=== PATIENT | female | born 1965 | race Caucasian/White ===

== ENCOUNTER 2016-12-11 16:41 | Emergency (ER) | payer OTHER ==
[~2016-12-11 16:41] MED LIST: ACYC-101 PO; ALBU.5I NEB; ASPI81CH CHEW; AZIT500T2 PO; BACT800T5 PO; BENZ100 PO; FLUT1SPR5 EACH NARE; MAGICADU2 SWISH-SPIT; PRED-503 PO; SYMB160A INH
[2016-12-11] MEDS ORDERED: SODIUM CHLORIDE 0.9% FLUSH 10 ML FLUSH IVF PRN (17:45)
--- NOTE | 2016-12-11 17:48 | PD ---
HPI Chief Complaint: Abdominal Pain Time Seen by Provider: 17:38 Travel History International Travel<30 days: No Contact w/Intl Traveler<30days: No Traveled to known affect area: No History of Present Illness HPI Patient is a 51-year-old female presenting to the emergency department with several vague medical complaints. She states that her abdomen is distended and uncomfortable than she believes she has congestive heart failure or sepsis. She reports that she has been incontinent of urine for the last 2 days has had a 4 pound weight gain. She also reports a productive cough with green sputum. Patient is oxygen dependent secondary to COPD. Patient reports that her doctor just put her on a new inhaler, Anoro. She believes she is having side effects from this medication. She states that she has a cramp in her left side and feels jittery. PFSH Past Medical History Hx Anticoagulant Therapy: Yes (ASA) Arthritis: Yes (back and and neck) Autoimmune Disease: No Bipolar Disorder: Yes Anxiety: Yes Depression: Yes Heart Rhythm Problems: No Cancer: Yes (Gastric and Cervical) High Cholesterol: No Chemotherapy: Yes Chest Pain: No Congestive Heart Failure: Yes COPD: Yes (oxygen dependent) Diabetes: No Diminished Hearing: No Endocrine: No Gastrointestinal Disorders: Yes (GASTRIC CANCER, GERD, HX OF STOMACH ULCERS, ESOPHAGEAL STRICTURES/DILATION) GERD: Yes Genitourinary: Yes (GENITAL HERPES, HPV) Headaches: Yes Hepatitis: Yes (c) Hiatal Hernia: No Hypertension: Yes Immune Disorder: Yes (HX OF RHEUMATOID ARTHRITIS) Kidney Stones: Yes Neurologic: Yes (SEIZURES 2-3 YEARS, 18 YO HEAD INJURY, STROKE 2000, MIGRAINES) Psychiatric: Yes (SCHIZOAFFECTIVE DISORDER, POST TRAUMATIC STRESS DISORDER, OCD) Reproductive: Yes (CERVICAL CA, ABNORMAL VAGINAL BLEEDING) Immunizations Current: Yes Migraines: Yes Myocardial Infarction: Yes Radiation Therapy: Yes (2010) Renal Failure: No Seizures: Yes Sickle Cell Disease: No Sleep Apnea: No Thyroid Disease: No Ulcer: Yes PNEUMOCCOCAL Vaccine (Year): 2 Menopausal: Yes : 4 Para: 3 : 1 Ovarian Cysts: Yes Dilation and Curettage (D&C): Yes Past Surgical History Abdominal Surgery: Yes (06/16/10 PARTIAL BOWEL AND STOMACH REMOVAL FOR CA.-- CHEMO/RADIATION 2009) AICD: No Arteriovenous Shunt: No Body Medical Devices: CLAMPS FROM STOMACH SURGERY, TITANIUM PLATE IN HEAD Cardiac Surgery: No Section: Yes Ear Surgery: No Endocrine Surgery: No Eye Surgery: No Genitourinary Surgery: No Gynecologic Surgery: Yes (C SECTION X 2) Insulin Pump: No Joint Replacement: No Neurologic Surgery: Yes (CRAINIOTOMY AFTER HEAD INJURY AT 18 YO) Oral Surgery: No Pacemaker: No Thoracic Surgery: No Other Surgery: Yes (gastrectomy ) Social History Alcohol Use: No (hx) Tobacco Use: Yes (2 packs per week ) Substance Use: Yes (heroin, cocaine, meth, IV DRUG USE) Allergies-Medications (Allergen,Severity, Reaction): Coded Allergies: Codeine (Verified Adverse Reaction, Severe, NAUSEA, ITCHING, 08/08/16) Lortab (Verified Adverse Reaction, Intermediate, NAUSEA/VOMITING, 08/08/16 ) Percocet (Verified Adverse Reaction, Intermediate, NAUSEA/VOMITING, ) *MDRO Multi-Drug Resistant Organism (Verified Adverse Reaction, Unknown, 08/08/16) Pt. reports hx of MRSA. MRSA PCR Screen negative 06/20/15. Reported Meds & Prescriptions Reported Meds & Active Scripts Active Magic Mouthwash Adult Liq (Multi-Ingredient Mouthwash/Gargle) 120 Ml Susp 5 Ml SWISH-SPIT Q3HR Each 5 mL contains: Nystatin 200,000 units, Diphenhydramine 4.25 mg, Viscous Lidocaine 10 mg, Robles syrup 0.8 mL Tessalon Perles (Benzonatate) 100 Mg Cap 100 Mg PO TID PRN Azithromycin 500 Mg Tab 500 Mg PO DAILY Reported Calcium (Oyster Shell) 500 Mg Tab B Complex (B-Complex Vitamins) 1 Cap 1 Cap PO DAILY Potassium 75 Mg Tab Vitamin D3 (Cholecalciferol) 1,000 Unit Chew 1,000 Units CHEW DAILY Vitamin C (Ascorbic Acid) 100 Mg Chew 100 Mg CHEW Ipratropium [place] 1 Pow Pow Proair Respiclick Inh (Albuterol Sulfate) 90 Mcg/Act Aerp 1 Puff INH Q4H PRN Anoro Ellipta Inh (Umeclidinium/Vilanterol) 62.5-25 Mcg/Act Aero 1 Puff INH DAILY Prednisone 10 Mg Tab 10 Mg PO DAILY Bactrim DS (Sulfamethoxazole-Trimethoprim) 800-160 Mg Tab 1 Tab PO BID Zovirax (Acyclovir) 800 Mg Tab 800 Mg PO BID Flonase Nasal [place] (Fluticasone Nasal [place]) 50 Mcg/Act [place] 50 Mcg EACH NARE BID Symbicort Inh (Budesonide/Formoterol Fumarate) 160-4.5 Mcg/Act Aero 2 Puff INH Q12HR Aspirin 81 Mg Chew 81 Mg CHEW DAILY Albuterol Neb (Albuterol Sulfate) 2.5 Mg/0.5 Ml Neb 2.5 Mg NEB Q4HR NEB PRN Note: The Albuterol Sulfate Inhalation Solution is concentrated and must be diluted. Read complete instructions carefully before using. Review of Systems Except as stated in HPI: all other systems reviewed are Neg Respiratory: Positive: Cough, Shortness of Breath Gastrointestinal: Positive: Abdominal Pain (distention), No: Nausea, Vomiting Genitourinary: Positive: Dysuria, Incontinence Neurologic: No: Weakness, Dizziness, Syncope, Focal Abnormalities Physical Exam Narrative GENERAL: Developed, well-nourished, alert female. Resting comfortably in no acute distress. SKIN: Focused skin assessment warm/dry. HEAD: Atraumatic. Normocephalic. EYES: Pupils equal and round. No scleral icterus. No injection or drainage. ENT: No nasal bleeding or discharge. Mucous membranes pink and moist. NECK: Trachea midline. No JVD. CARDIOVASCULAR: Regular rate and rhythm. No murmur appreciated. RESPIRATORY: No accessory muscle use. Scattered expiratory wheezing noted. These work of breathing, no nasal flaring, no retractions. GASTROINTESTINAL: Abdomen soft, non-tender, mildly distended. Hepatic and splenic margins not palpable. Positive bowel sounds, no rebound, or guarding MUSCULOSKELETAL: No obvious deformities. No clubbing. No cyanosis. No edema. NEUROLOGICAL: Awake and alert. No obvious cranial nerve deficits. Motor grossly within normal limits. Normal speech. PSYCHIATRIC: Appropriate mood and affect; insight and judgment normal. Data Data Last Documented VS Vital Signs Date Time Temp Pulse Resp B/P Pulse Ox O2 Delivery O2 Flow Rate FiO2 12/11/16 18:35 99.1 89 20 142/86 98 Nasal Cannula 2 Orders Complete Blood Count With Diff (12/11/16 17:35) Comprehensive Metabolic Panel (12/11/16 17:35) B-Type Natriuretic Peptide (12/11/16 17:35) Prothrombin Time / Inr (Pt) (12/11/16 17:35) Magnesium (Mg) (12/11/16 17:35) Troponin I (12/11/16 17:35) Urinalysis - C+S If Indicated (12/11/16 17:35) Iv Access Insert/Monitor (12/11/16 17:35) Electrocardiogram (12/11/16 17:35) Ecg Monitoring (12/11/16 17:35) Oximetry (12/11/16 17:35) Oxygen Administration (12/11/16 17:35) Chest, Single Ap (12/11/16 17:35) Sodium Chloride 0.9% Flush (Ns Flush) (12/11/16 17:45) Labs Laboratory Tests Test 12/11/16 12/11/16 17:57 18:00 Urine Color YELLOW Urine Turbidity CLEAR Urine pH 6.0 Urine Specific [place] 1.022 Urine Protein NEG mg/dL Urine Glucose (UA) NEG mg/dL Urine Ketones NEG mg/dL Urine Occult Blood NEG Urine Nitrite NEG Urine Bilirubin NEG Urine Urobilinogen LESS THAN 2.0 MG/DL Urine Leukocyte Esterase NEG Urine WBC LESS THAN 1 /hpf Urine Squamous Epithelial <1 /hpf Cells Microscopic Urinalysis Comment CULT NOT INDICATED White Blood Count 8.4 TH/MM3 Red Blood Count 4.56 MIL/MM3 Hemoglobin 14.3 GM/DL Hematocrit 42.8 % Mean Corpuscular Volume 93.9 FL Mean Corpuscular Hemoglobin 31.3 PG Mean Corpuscular Hemoglobin 33.4 % Concent Red Cell Distribution Width 13.4 % Platelet Count 234 TH/MM3 Mean Platelet Volume 10.5 FL Neutrophils (%) (Auto) 48.7 % Lymphocytes (%) (Auto) 37.2 % Monocytes (%) (Auto) 11.5 % Eosinophils (%) (Auto) 0.9 % Basophils (%) (Auto) 1.7 % Neutrophils # (Auto) 4.1 TH/MM3 Lymphocytes # (Auto) 3.1 TH/MM3 Monocytes # (Auto) 1.0 TH/MM3 Eosinophils # (Auto) 0.1 TH/MM3 Basophils # (Auto) 0.1 TH/MM3 CBC Comment AUTO DIFF Differential Comment AUTO DIFF CONFIRMED Platelet Estimate NORMAL Platelet Morphology Comment NORMAL Red Cell Morphology Comment NORMAL Prothrombin Time 9.5 SEC Prothromb Time International 0.9 RATIO Ratio Sodium Level 138 MEQ/L Potassium Level 5.1 MEQ/L Chloride Level 103 MEQ/L Carbon Dioxide Level 28.0 MEQ/L Anion Gap 7 MEQ/L Blood Urea Nitrogen 30 MG/DL Creatinine 0.91 MG/DL Estimat Glomerular Filtration 65 ML/MIN Rate Random Glucose 97 MG/DL Calcium Level 8.7 MG/DL Magnesium Level 2.5 MG/DL Total Bilirubin 0.4 MG/DL Aspartate Amino Transf 22 U/L (AST/SGOT) Alanine Aminotransferase 25 U/L (ALT/SGPT) Alkaline Phosphatase 83 U/L Troponin I LESS THAN 0.02 NG/ML B-Type Natriuretic Peptide 34 PG/ML Total Protein 7.0 GM/DL Albumin 3.4 GM/DL MDM Medical Decision Making Medical Screen Exam Complete: Yes Emergency Medical Condition: Yes Interpretation(s) Laboratory Tests Test 12/11/16 12/11/16 17:57 18:00 Urine Color YELLOW Urine Turbidity CLEAR Urine pH 6.0 Urine Specific [place] 1.022 Urine Protein NEG mg/dL Urine Glucose (UA) NEG mg/dL Urine Ketones NEG mg/dL Urine Occult Blood NEG Urine Nitrite NEG Urine Bilirubin NEG Urine Urobilinogen LESS THAN 2.0 MG/DL Urine Leukocyte Esterase NEG Urine WBC LESS THAN 1 /hpf Urine Squamous Epithelial <1 /hpf Cells Microscopic Urinalysis Comment CULT NOT INDICATED White Blood Count 8.4 TH/MM3 Red Blood Count 4.56 MIL/MM3 Hemoglobin 14.3 GM/DL Hematocrit 42.8 % Mean Corpuscular Volume 93.9 FL Mean Corpuscular Hemoglobin 31.3 PG Mean Corpuscular Hemoglobin 33.4 % Concent Red Cell Distribution Width 13.4 % Platelet Count 234 TH/MM3 Mean Platelet Volume 10.5 FL Neutrophils (%) (Auto) 48.7 % Lymphocytes (%) (Auto) 37.2 % Monocytes (%) (Auto) 11.5 % Eosinophils (%) (Auto) 0.9 % Basophils (%) (Auto) 1.7 % Neutrophils # (Auto) 4.1 TH/MM3 Lymphocytes # (Auto) 3.1 TH/MM3 Monocytes # (Auto) 1.0 TH/MM3 Eosinophils # (Auto) 0.1 TH/MM3 Basophils # (Auto) 0.1 TH/MM3 CBC Comment AUTO DIFF Differential Comment AUTO DIFF CONFIRMED Platelet Estimate NORMAL Platelet Morphology Comment NORMAL Red Cell Morphology Comment NORMAL Prothrombin Time 9.5 SEC Prothromb Time International 0.9 RATIO Ratio Sodium Level 138 MEQ/L Potassium Level 5.1 MEQ/L Chloride Level 103 MEQ/L Carbon Dioxide Level 28.0 MEQ/L Anion Gap 7 MEQ/L Blood Urea Nitrogen 30 MG/DL Creatinine 0.91 MG/DL Estimat Glomerular Filtration 65 ML/MIN Rate Random Glucose 97 MG/DL Calcium Level 8.7 MG/DL Magnesium Level 2.5 MG/DL Total Bilirubin 0.4 MG/DL Aspartate Amino Transf 22 U/L (AST/SGOT) Alanine Aminotransferase 25 U/L (ALT/SGPT) Alkaline Phosphatase 83 U/L Troponin I LESS THAN 0.02 NG/ML B-Type Natriuretic Peptide 34 PG/ML Total Protein 7.0 GM/DL Albumin 3.4 GM/DL Last Impressions Chest X-Ray 12/11/16 9845 Signed Impressions: Service Date/Time: Sunday, December 11, 2016 17:54 - CONCLUSION: No acute disease. Richy Brady MD Vital Signs Date Time Temp Pulse Resp B/P Pulse Ox O2 Delivery O2 Flow Rate FiO2 12/11/16 17:32 20 Differential Diagnosis CHF versus COPD exacerbation versus constipation versus ascites versus UTI versus other Narrative Course Patient is a 51-year-old female presenting to emergency for evaluation of various medical complaints including incontinence, productive cough, abdominal distention. Patient is concerned she has congestive heart failure due to her abdomen being swollen. Her vital signs are stable, she is oxygen dependent. Chest x-ray shows no acute abnormality EKG shows sinus bradycardia BNP 34 Troponin less than 0.02 Chemistry is unremarkable CBC is unremarkable Coags are unremarkable Urinalysis is normal Patient was reassured at this time there does not appear to be any sign of congestive heart failure. I reassured her that her chest x-ray, labs do not indicate that she has congestive heart failure. She is advised to follow-up with her weigher alloy to discuss possible side effects of the ANORO inhaler. She was encouraged to follow-up with her community health coordinator and primary care provider. He was encouraged to return to emergency department for any new or worsening symptoms. Patient verbalized understanding of these instructions. She appeared to be more at ease and reassured. Physician Communication Physician Communication Dr. Dougherty Diagnosis Primary Impression: COPD (chronic obstructive pulmonary disease) Qualified Code: J44.9 - Chronic obstructive pulmonary disease, unspecified COPD type Referrals: Brando Lawson MD 3 days Secretarial Teacher Primary Care Physician Patient Instructions: COPD (Chronic Obstructive Pulmonary Disease) (ED), General Instructions Additional Instructions: Follow-up with your weigher alloy, community health coordinator, primary doctor Continue home medications as previously prescribed Return to emergency department for any new or worsening symptoms Med/Other Pt SpecificInfo: No Change to Meds Disposition: 01 DISCHARGE HOME Condition: Stable Gini Hurtado Dec 11, 2016 17:48
[2016-12-11 18:11] VITALS: O2SAT 98
--- NOTE | 2016-12-11 18:29 | RADRPT ---
EXAM DATE/TIME: 12/11/2016 17:54 [facility] COMPARISON: CHEST SINGLE AP, August 08, 2016, 15:29. EXTERNAL COMPARISON : [facility] INDICATIONS : Shortness of breath. MEDICAL HISTORY : Congestive heart failure. Emphysema. Chronic obstructive pulmonary SURGICAL HISTORY : None. ENCOUNTER: Initial ACUITY: 1 week PAIN SCORE: 0/10 LOCATION: Bilateral chest FINDINGS: A single view of the chest demonstrates the lungs to be symmetrically aerated without evidence of mas s, infiltrate or effusion. The cardiomediastinal contours are unremarkable. Osseous structures are intact. CONCLUSION: No acute disease. Richy Brady MD on December 11, 2016 at 18:27 Board Certified Radiologist. This report was verified electronically.
[2016-12-11 18:35] VITALS: BP 142/86; PULSE 89; RESP 20; TEMP 99.1; O2SAT 98
[2016-12-11 18:39] LABS: BLOOD, URINE NEG (NEG); GLUCOSE,URINE NEG (NEG); KETONE, URINE NEG (NEG); NITRITE,URINE NEG (NEG); SQUAMOUS EPITHELIAL CELL URINE <1 /hpf (0-5); URINE COLOR YELLOW (YELLW/STRAW)
[2016-12-11 18:41] LABS: AUTOMATED NEUTROPHIL # 4.1 TH/MM3 (1.8-7.7); BASOPHIL # 0.1 TH/MM3 (0-0.2); BASOPHIL % 1.7 % (0.0-2.0); EOSINOPHIL # 0.1 TH/MM3 (0-0.4); EOSINOPHIL % 0.9 % (0.0-4.0); HEMATOCRIT 42.8 % (35.0-46.0); LYMPH % 37.2 % (9.0-44.0); LYMPHOCYTE # 3.1 TH/MM3 (1.0-4.8); MEAN CELL VOLUME 93.9 FL (80.0-100.0); MEAN CORPUSCULAR HEMOGLOBIN 31.3 PG (27.0-34.0); MEAN CORPUSCULAR HGB CONC 33.4 % (32.0-36.0); MONO % 11.5 % (0.0-8.0); NEUT % 48.7 % (16.0-70.0); PLATELET COUNT 234 TH/MM3 (150-450); RED BLOOD COUNT 4.56 MIL/MM3 (4.00-5.30); RED CELL DISTRIBUTION WIDTH 13.4 % (11.6-17.2); WHITE BLOOD COUNT 8.4 TH/MM3 (4.0-11.0)
[2016-12-11 18:45] LABS: HEMO FLAGS AUTO DIFF; INTERNATIONAL NORMALIZED RATIO 0.9 RATIO; PROTHROMBIN TIME - PATIENT 9.5 SEC (9.8-11.6)
[2016-12-11] MEDS ORDERED: IPRA1POW8 (18:50)
[2016-12-11] MEDS ORDERED: PRED10 PO (18:50)
[2016-12-11] MEDS ORDERED: UMEC1AER INH (18:50)
[2016-12-11] MEDS ORDERED: VITA100C6 CHEW (18:50)
[2016-12-11] MEDS ORDERED: CHOL100025 CHEW (18:50)
[2016-12-11] MEDS ORDERED: CALC500T35 (18:50)
[2016-12-11] MEDS ORDERED: POTA75TA (18:50)
[2016-12-11] MEDS ORDERED: VITACAP7 PO (18:50)
[2016-12-11] MEDS ORDERED: ALBU1AER5 INH (18:50)
[2016-12-11 18:51] LABS: COMMENT (UR) CULT NOT INDICATED; CULTURE IF INDICATED CULT NOT INDICATED
[2016-12-11 19:08] LABS: ANION GAP 7 MEQ/L (5-15); AST (GOT) 22 U/L (15-37); BLOOD UREA NITROGEN 30 MG/DL (7-18); CHLORIDE 103 MEQ/L (98-107); GLOMERULAR FILTRATION RATE 65 ML/MIN (>89); MAGNESIUM 2.5 MG/DL (1.5-2.5); SODIUM (NA) 138 MEQ/L (136-145)
[2016-12-11 19:09] LABS: POTASSIUM 5.1 MEQ/L (3.5-5.1)
[2016-12-11 19:12] LABS: ALKALINE PHOSPHATASE 83 U/L (45-117); ALT (GPT) 25 U/L (10-53); TOTAL BILIRUBIN ADULT 0.4 MG/DL (0.2-1.0)
[2016-12-11 19:23] LABS: PLATELET ESTIMATE SMEAR NORMAL (NORMAL); PLATELET MORPHOLOGY NORMAL (NORMAL); SCAN/DIFF AUTO DIFF CONFIRMED
--- NOTE | 2016-12-12 15:53 | EKG ---
Date Performed: 12/11/2016 Time Performed: 18:06:43 PTAGE: 51 years EKG: Sinus rhythm NORMAL ECG PREVIOUS TRACING : 10/02/2015 14.03 Since previous tracing, no significant change noted DOCTOR: Maksim Caldwell Interpretating Date/Time 12/12/2016 15:53:17
== END 2016-12-11 20:27 | disposition home or self-care (01) ==
LOC: NEPD 16:41
DX: J44.9 Chronic obstructive pulmonary disease, unspecified (principal); R05 Cough; Z99.81 Dependence on supplemental oxygen; I50.9 Heart failure, unspecified; R32 Unspecified urinary incontinence; F31.9 Bipolar disorder, unspecified; K21.9 Gastro-esophageal reflux disease without esophagitis; I10 Essential (primary) hypertension; I25.2 Old myocardial infarction; Z79.899 Other long term (current) drug therapy
CPT/HCPCS: 71010; 80053; 81001; 83735; 83880; 84484; 85025; 85610; 93005

== ENCOUNTER 2017-01-13 19:02 | Emergency (ER) | payer OTHER ==
[~2017-01-13] VITALS: Ht 157.5 cm; Wt 60.0 kg
[~2017-01-13 19:02] MED LIST changes: +ALBU1AER5 INH; +CALC500T35; +CHOL100025 CHEW; +IPRA1POW8; +POTA75TA; -PRED-503 PO; +PRED10 PO; +UMEC1AER INH; +VITA100C6 CHEW; +VITACAP7 PO
[2017-01-13 19:05] VITALS: BP 113/88; PULSE 98; RESP 15; TEMP 99.6; O2SAT 94
--- NOTE | 2017-01-13 21:50 | RADRPT ---
EXAM DATE/TIME: 01/13/2017 21:08 [facility] COMPARISON: No previous studies available for comparison. INDICATIONS : Left lower back pain from fall. RADIATION DOSE: 35.86 CTDIvol (mGy) MEDICAL HISTORY : Carcinoma, gastric. Carcinoma, cervical. SURGICAL HISTORY : section. Partial bowel removed. Stomach removed. ENCOUNTER: Initial ACUITY: 2 months PAIN SCALE: 10/10 LOCATION: Left Lumbar spine. TECHNIQUE: Volumetric scanning of the lumbar spine was performed. Multiplanar reconstructions in the sagittal, coronal and oblique axial planes were performed. Using automated exposure control and adjustment of the mA and/or kV according to patient size, radiation dose was kept as low as reasonably achievable t o obtain optimal diagnostic quality images. FINDINGS: Sagittal images demostrate normal vertebral body alignment and curvature. No fractures are identified . Axial images performed from T12-L1 through L5-S1. There is mild scoliotic deformity convex to the r ight. There is multilevel disc space narrowing and marginal osteophyte formation maximal at L3-L4. T12-L1: No significant abnormalities identified. L1-L2: There is mild diffuse annular bulge of the disc. The neural foramina are clear bilaterally. There is no significant spinal canal stenosis. L2-L3: There is mild diffuse annular bulge of the disc. The neural foramina are clear bilaterally. There is no significant spinal canal stenosis. L3-L4: There is mild annular bulge of the disc. There is mild facet arthritis and ligamentum flavum hypertro phy bilaterally. The neural foramina are clear bilaterally. L4-L5: There is broad-based annular bulge of disc. There is mild facet arthritis and ligamentum flavum hyper [place] bilaterally. The neural foramina are clear bilaterally. L5-S1: There is mild diffuse annular bulge of the disc. The neural foramina are clear bilaterally. There is no significant spinal canal stenosis. CONCLUSION: 1. Mild degenerative changes as described above. There is no evidence of acute fracture. Mason Moss MD on January 13, 2017 at 21:46 Board Certified Radiologist. This report was verified electronically.
--- NOTE | 2017-01-13 22:22 | PD ---
HPI . Low back pain Chief Complaint: Pain: Acute or Chronic Time Seen by Provider: 20:36 Travel History International Travel<30 days: No Contact w/Intl Traveler<30days: No Traveled to known affect area: No History of Present Illness HPI Patient presents with low back pain. She has had it for a couple weeks. She states that it is getting progressively worse. She states that it feels like a broken bone in her back. She rates her pain as 10/10. She states that she has been seen by her primary care provider for this and was instructed to come to the emergency department for CT. She has a history of both gastric cancer and cervical cancer. There is concern that this back pain represents metastatic disease. Patient reports palpable masses in her low back which are very tender. Patient states that she has been given a prescription for pain medication per her primary care provider a few because she does not like the way that it makes her feel. She states that she has been treating her symptoms with Tylenol and a heating pad. PFSH Past Medical History Hx Anticoagulant Therapy: Yes (ASA) Arthritis: Yes (back and and neck) Asthma: Yes ( CHILD) Autoimmune Disease: No Bipolar Disorder: Yes Anxiety: Yes Depression: Yes Heart Rhythm Problems: No Cancer: Yes (Gastric and Cervical) Cardiovascular Problems: Yes (CHF) High Cholesterol: No Chemotherapy: Yes Chest Pain: No Congestive Heart Failure: Yes COPD: Yes (oxygen dependent) Diabetes: No Diminished Hearing: No Endocrine: No Gastrointestinal Disorders: Yes (GASTRIC CANCER, GERD, HX OF STOMACH ULCERS, ESOPHAGEAL STRICTURES/DILATION) GERD: Yes Genitourinary: Yes (GENITAL HERPES, HPV) Headaches: Yes Hepatitis: Yes (c) Hiatal Hernia: No Hypertension: Yes Immune Disorder: Yes (HX OF RHEUMATOID ARTHRITIS) Kidney Stones: Yes Medical other: Yes (HX OF ANEMIA, GASTRIC DUMPING SYNDROME) Musculoskeletal: Yes (CHRONIC NECK PAIN, BACK, SHOULDER, RHEUMATOID ARTHRITIS) Neurologic: Yes (SEIZURES 2-3 YEARS, 18 YO HEAD INJURY, STROKE 2000, MIGRAINES) Psychiatric: Yes (SCHIZOAFFECTIVE DISORDER, POST TRAUMATIC STRESS DISORDER, OCD) Reproductive: Yes (CERVICAL CA, ABNORMAL VAGINAL BLEEDING) Respiratory: Yes (COPD) Immunizations Current: Yes Migraines: Yes Myocardial Infarction: Yes Radiation Therapy: Yes (2010) Renal Failure: No Seizures: Yes Sickle Cell Disease: No Sleep Apnea: No Thyroid Disease: No Ulcer: Yes PNEUMOCCOCAL Vaccine (Year): 2 ?: Not Menopausal: Yes : 4 Para: 3 : 1 Ovarian Cysts: Yes Dilation and Curettage (D&C): Yes Past Surgical History Abdominal Surgery: Yes (06/16/10 PARTIAL BOWEL AND STOMACH REMOVAL FOR CA.-- CHEMO/RADIATION 2009) AICD: No Arteriovenous Shunt: No Body Medical Devices: CLAMPS FROM STOMACH SURGERY, TITANIUM PLATE IN HEAD Cardiac Surgery: No Section: Yes (x2) Ear Surgery: No Endocrine Surgery: No Eye Surgery: No Genitourinary Surgery: No Gynecologic Surgery: Yes (C SECTION X 2) Insulin Pump: No Joint Replacement: No Neurologic Surgery: Yes (CRAINIOTOMY AFTER HEAD INJURY AT 18 YO) Oral Surgery: No Pacemaker: No Thoracic Surgery: No Other Surgery: Yes (gastrectomy ) Social History Alcohol Use: No (hx) Tobacco Use: Yes Substance Use: No (heroin, cocaine, meth, IV DRUG USE-pt denies) Allergies-Medications (Allergen,Severity, Reaction): Coded Allergies: Codeine (Verified Adverse Reaction, Severe, NAUSEA, ITCHING, 01/13/17) Lortab (Verified Adverse Reaction, Intermediate, NAUSEA/VOMITING, 01/13/17) Percocet (Verified Adverse Reaction, Intermediate, NAUSEA/VOMITING, ) *MDRO Multi-Drug Resistant Organism (Verified Adverse Reaction, Unknown, ) Pt. reports hx of MRSA. MRSA PCR Screen negative 06/20/15. Reported Meds & Prescriptions Reported Meds & Active Scripts Active Reported Calcium (Oyster Shell) 500 Mg Tab B Complex (B-Complex Vitamins) 1 Cap 1 Cap PO DAILY Potassium 75 Mg Tab Vitamin D3 (Cholecalciferol) 1,000 Unit Chew 1,000 Units CHEW DAILY Vitamin C (Ascorbic Acid) 100 Mg Chew 100 Mg CHEW Ipratropium [place] 1 Pow Pow Proair Respiclick Inh (Albuterol Sulfate) 90 Mcg/Act Aerp 1 Puff INH Q4H PRN Anoro Ellipta Inh (Umeclidinium/Vilanterol) 62.5-25 Mcg/Act Aero 1 Puff INH DAILY Zovirax (Acyclovir) 800 Mg Tab 800 Mg PO BID Flonase Nasal [place] (Fluticasone Nasal [place]) 50 Mcg/Act [place] 50 Mcg EACH NARE BID Aspirin 81 Mg Chew 81 Mg CHEW DAILY Albuterol Neb (Albuterol Sulfate) 2.5 Mg/0.5 Ml Neb 2.5 Mg NEB Q4HR NEB PRN Note: The Albuterol Sulfate Inhalation Solution is concentrated and must be diluted. Read complete instructions carefully before using. Review of Systems Except as stated in HPI: all other systems reviewed are Neg General / Constitutional: Positive: Weight Gain, No: Fever, Chills Respiratory: Positive: Shortness of Breath (chronic shortness of breath related to COPD.) Musculoskeletal: Positive: Pain (low back pain) Skin: Positive Lumps Physical Exam Narrative GENERAL: Patient is awake and alert and does not appear to be in any acute distress. She is on oxygen. SKIN: Warm and dry. She has several subcutaneous, freely mobile masses in her low back. They are of varying sizes. She actually has one on her right low back which is quite large. It probably 10 cm in diameter. HEAD: Atraumatic. Normocephalic. EYES: Pupils equal and round. ENT: No nasal bleeding or discharge. Mucous membranes pink and moist. NECK: Trachea midline. CARDIOVASCULAR: Regular rate and rhythm. RESPIRATORY: On O2. Speaking in complete sentences without any apparent respiratory distress. GASTROINTESTINAL: Abdomen soft, non-tender, nondistended. MUSCULOSKELETAL: No obvious deformities. No edema. NEUROLOGICAL: Awake and alert. No obvious cranial nerve deficits. Motor grossly within normal limits. Normal speech. PSYCHIATRIC: Appropriate mood and affect; insight and judgment normal. Data Data Last Documented VS Vital Signs Date Time Temp Pulse Resp B/P Pulse Ox O2 Delivery O2 Flow Rate FiO2 01/13/17 19:05 99.6 98 15 113/88 94 Room Air [address] Lumb Spine W/O Contrast (01/13/17 20:36) MDM Medical Decision Making Medical Screen Exam Complete: Yes Emergency Medical Condition: Yes Differential Diagnosis Differential diagnosis includes but is not limited to muscular low back pain, DDD, spinal stenosis, epidural abscess, sciatica, kidney infection or stone. Narrative Course Patient presents complaining of low back pain. She does have palpable subcutaneous masses scattered throughout her low back. They are freely mobile but tender. Last Impressions Lumbar Spine CT 01/13/172035 Signed Impressions: Service Date/Time: Friday, January 13, 2017 21:08 - CONCLUSION: 1. Mild degenerative changes as described above. There is no evidence of acute fracture. Mason Moss MD The CT shows scoliosis which is probably responsible for the apparent swelling of the right low back. Diagnosis Primary Impression: Low back pain Qualified Code: M54.5 - Acute bilateral low back pain without sciatica Additional Instructions: Continue to see your doctor for this. Disposition: 01 DISCHARGE HOME Condition: Stable Pratibha Corona MD January 13, 2017 22:22
== END 2017-01-13 23:40 | disposition home or self-care (01) ==
LOC: NEPD 19:02
DX: M54.5 Low back pain (principal); I10 Essential (primary) hypertension; Z79.01 Long term (current) use of anticoagulants; Z72.0 Tobacco use
CPT/HCPCS: 72131

== ENCOUNTER 2017-03-14 17:50 | Emergency (ER) | payer OTHER ==
[~2017-03-14] VITALS: Ht 157.5 cm; Wt 60.0 kg
[~2017-03-14 17:50] MED LIST changes: -AZIT500T2 PO; -BACT800T5 PO; -BENZ100 PO; -MAGICADU2 SWISH-SPIT; -PRED10 PO; -SYMB160A INH
[2017-03-14 17:53] VITALS: BP 147/81; PULSE 102; RESP 24; TEMP 97.9; O2SAT 95
[2017-03-14 18:27] VITALS: RESP 20; O2SAT 99
[2017-03-14] MEDS ORDERED: methylPREDNISolone SOD SUCC 125 MG/2 ML VIAL IVP ONE (18:30)
[2017-03-14] MEDS ORDERED: SODIUM CHLORIDE 0.9% FLUSH 10 ML FLUSH IVF PRN (18:30)
--- NOTE | 2017-03-14 18:30 | PD ---
HPI Chief Complaint: Respiratory Symptoms Time Seen by Provider: 18:26 Travel History International Travel<30 days: No Contact w/Intl Traveler<30days: No Traveled to known affect area: No History of Present Illness HPI 51-year-old female presents to the emergency department for evaluation of worsening cough, congestion. She states she was running fevers for 3 days, but the fevers broke yesterday. She denies any current fevers. Patient has history of COPD. She states she is on oxygen at home, 2.5 L. Patient states that approximately one year ago, she was very sick with pneumonia, sepsis and states that she did have a PE at that time. I do not have records of this admission 1 year ago. The patient states she was recently on Levaquin for bronchitis. She finished this just recently. She is currently taking benzonatate capsules for cough. The patient states that she had congestive heart failure when she was hospital was one year ago, but denies any current history of CHF that she is not on any diuretics. Patient is concerned that she may have pneumonia, sepsis, or CHF. Patient states she is having right thoracic back pain, worse with deep breathing and movement. She denies any abdominal pain. No nausea, vomiting, diarrhea. PFSH Past Medical History Hx Anticoagulant Therapy: Yes (ASA) Arthritis: Yes (back and and neck) Asthma: Yes ( CHILD) Autoimmune Disease: No Bipolar Disorder: Yes Anxiety: Yes Depression: Yes Heart Rhythm Problems: No Cancer: Yes (Gastric and Cervical) Cardiovascular Problems: Yes ([place] X 2 CHF) High Cholesterol: No Chemotherapy: Yes Chest Pain: No Congestive Heart Failure: Yes COPD: Yes (oxygen dependent) Cerebrovascular Accident: Yes (TIA ) Diabetes: No Diminished Hearing: No Endocrine: No Gastrointestinal Disorders: Yes (GASTRIC CANCER, GERD, HX OF STOMACH ULCERS, ESOPHAGEAL STRICTURES/DILATION) GERD: Yes Genitourinary: Yes (GENITAL HERPES, HPV) Headaches: Yes Hepatitis: Yes (c) Hiatal Hernia: No Hypertension: Yes Immune Disorder: Yes (HX OF RHEUMATOID ARTHRITIS) Kidney Stones: Yes Medical other: Yes (HX OF ANEMIA, GASTRIC DUMPING SYNDROME) Musculoskeletal: Yes (CHRONIC NECK PAIN, BACK, SHOULDER, RHEUMATOID ARTHRITIS) Neurologic: Yes (SEIZURES 2-3 YEARS, 18 YO HEAD INJURY, STROKE 2000, MIGRAINES) Psychiatric: Yes (SCHIZOAFFECTIVE DISORDER, POST TRAUMATIC STRESS DISORDER, OCD) Reproductive: Yes (CERVICAL CA, ABNORMAL VAGINAL BLEEDING) Respiratory: Yes (COPD) Immunizations Current: Yes Migraines: Yes Myocardial Infarction: Yes Radiation Therapy: Yes (2010) Renal Failure: No Seizures: Yes Sickle Cell Disease: No Sleep Apnea: No Thyroid Disease: No Ulcer: Yes Tetanus Vaccination: Never Vaccinated PNEUMOCCOCAL Vaccine (Year): 2 ?: Not Menopausal: Yes : 4 Para: 3 : 1 Ovarian Cysts: Yes Dilation and Curettage (D&C): Yes Past Surgical History Abdominal Surgery: Yes (06/16/10 PARTIAL BOWEL AND STOMACH REMOVAL FOR CA.-- CHEMO/RADIATION 2009) AICD: No Arteriovenous Shunt: No Body Medical Devices: CLAMPS FROM STOMACH SURGERY, TITANIUM PLATE IN HEAD Cardiac Surgery: No Section: Yes (x2) Ear Surgery: No Endocrine Surgery: No Eye Surgery: No Genitourinary Surgery: No Gynecologic Surgery: Yes (C SECTION X 2) Insulin Pump: No Joint Replacement: No Neurologic Surgery: Yes (CRAINIOTOMY AFTER HEAD INJURY AT 18 YO) Oral Surgery: No Pacemaker: No Thoracic Surgery: No Other Surgery: Yes (gastrectomy ) Social History Alcohol Use: No (hx) Tobacco Use: Yes Substance Use: No (heroin, cocaine, meth, IV DRUG USE-pt denies) Allergies-Medications (Allergen,Severity, Reaction): Coded Allergies: Codeine (Verified Adverse Reaction, Severe, NAUSEA, ITCHING, 03/14/17) Lortab (Verified Adverse Reaction, Intermediate, NAUSEA/VOMITING, 03/14/17) Percocet (Verified Adverse Reaction, Intermediate, NAUSEA/VOMITING, ) *MDRO Multi-Drug Resistant Organism (Verified Adverse Reaction, Unknown, ) Pt. reports hx of MRSA. MRSA PCR Screen negative 06/20/15. Reported Meds & Prescriptions Reported Meds & Active Scripts Active Reported Tessalon Perles (Benzonatate) 100 Mg Cap 100 Mg PO TID PRN Levofloxacin 750 Mg Tablet 750 Mg PO DAILY Calcium (Calcium Carbonate) 600 Mg Tab 600 Mg PO BID B Complex (B-Complex Vitamins) 1 Cap 1 Cap PO DAILY Vitamin D3 (Cholecalciferol) 1,000 Unit Chew 1,000 Units CHEW DAILY Proair Respiclick Inh (Albuterol Sulfate) 90 Mcg/Act Aerp 1 Puff INH Q4H PRN Zovirax (Acyclovir) 800 Mg Tab 800 Mg PO BID Flonase Nasal [place] (Fluticasone Nasal [place]) 50 Mcg/Act [place] 50 Mcg EACH NARE BID Aspirin 81 Mg Chew 81 Mg CHEW DAILY Albuterol Neb (Albuterol Sulfate) 2.5 Mg/0.5 Ml Neb 2.5 Mg NEB Q4HR NEB PRN Note: The Albuterol Sulfate Inhalation Solution is concentrated and must be diluted. Read complete instructions carefully before using. Review of Systems Except as stated in HPI: all other systems reviewed are Neg Physical Exam Narrative GENERAL: Well-nourished, well-developed female patient, afebrile. SKIN: Focused skin assessment warm/dry. HEAD: Normocephalic. Atraumatic. EYES: No scleral icterus. No injection or drainage. NECK: Supple, trachea midline. No JVD or lymphadenopathy. CARDIOVASCULAR: Regular rate and rhythm without murmurs, gallops, or rubs. Bilateral Radial and pedal pulses 2+. RESPIRATORY: Breath sounds equal bilaterally. No accessory muscle use. Lungs sounds diminished with expiratory wheezes noted. GASTROINTESTINAL: Abdomen soft, non-tender, nondistended. MUSCULOSKELETAL: No cyanosis, or edema. BACK: Nontender without obvious deformity. No CVA tenderness. Data Data Last Documented VS Vital Signs Date Time Temp Pulse Resp B/P Pulse Ox O2 Delivery O2 Flow Rate FiO2 03/14/17 20:55 101 22 113/68 96 2 03/14/17 18:52 Nasal Cannula 03/14/17 17:53 97.9 Orders Electrocardiogram (03/14/17 ) Complete Blood Count With Diff (03/14/17 18:22) Basic Metabolic Panel (Bmp) (03/14/17 18:22) B-Type Natriuretic Peptide (03/14/17 18:22) D-Dimer (03/14/17 18:22) Act Partial Throm Time (Ptt) (03/14/17 18:22) Prothrombin Time / Inr (Pt) (03/14/17 18:22) Magnesium (Mg) (03/14/17 18:22) Ckmb (Isoenzyme) Profile (03/14/17 18:22) Troponin I (03/14/17 18:22) Iv Access Insert/Monitor (03/14/17 18:22) Ecg Monitoring (03/14/17 18:22) Oximetry (7/16/17 18:22) Oxygen Administration (03/14/17 18:22) Chest, Single Ap (03/14/17 18:22) Sodium Chloride 0.9% Flush (Ns Flush) (03/14/17 18:30) Methylprednisolone So Succ Inj (Solumedr (03/14/17 18:30) Albuterol-Ipratropium Neb (Duoneb Neb) (03/14/17 18:30) Ct Pulmonary Angiogram (03/14/17 ) CKMB (03/14/17 18:45) CKMB% (03/14/17 18:45) Ondansetron Inj (Zofran Inj) (03/14/17 20:45) Morphine Inj (Morphine Inj) (03/14/17 20:45) Iohexol 350 Inj (Omnipaque 350 Inj) (03/14/17 22:32) Labs Laboratory Tests Test 03/14/17 18:45 White Blood Count 11.6 TH/MM3 Red Blood Count 4.56 MIL/MM3 Hemoglobin 14.1 GM/DL Hematocrit 41.8 % Mean Corpuscular Volume 91.7 FL Mean Corpuscular Hemoglobin 30.9 PG Mean Corpuscular Hemoglobin 33.6 % Concent Red Cell Distribution Width 13.6 % Platelet Count 324 TH/MM3 Mean Platelet Volume 10.0 FL Neutrophils (%) (Auto) 50.7 % Lymphocytes (%) (Auto) 33.1 % Monocytes (%) (Auto) 10.9 % Eosinophils (%) (Auto) 4.3 % Basophils (%) (Auto) 1.0 % Neutrophils # (Auto) 5.9 TH/MM3 Lymphocytes # (Auto) 3.8 TH/MM3 Monocytes # (Auto) 1.3 TH/MM3 Eosinophils # (Auto) 0.5 TH/MM3 Basophils # (Auto) 0.1 TH/MM3 CBC Comment DIFF FINAL Differential Comment Prothrombin Time 11.4 SEC Prothromb Time International 1.0 RATIO Ratio Activated Partial 28.6 SEC Thromboplast Time D-Dimer Quantitative (PE/DVT) 0.73 MG/L FEU Sodium Level 137 MEQ/L Potassium Level 5.0 MEQ/L Chloride Level 104 MEQ/L Carbon Dioxide Level 27.4 MEQ/L Anion Gap 6 MEQ/L Blood Urea Nitrogen 19 MG/DL Creatinine 1.13 MG/DL Estimat Glomerular Filtration 51 ML/MIN Rate Random Glucose 99 MG/DL Calcium Level 9.6 MG/DL Magnesium Level 1.8 MG/DL Total Creatine Kinase 118 U/L Creatine Kinase MB 2.3 NG/ML Troponin I LESS THAN 0.02 NG/ML B-Type Natriuretic Peptide 17 PG/ML MDM Medical Decision Making Medical Screen Exam Complete: Yes Emergency Medical Condition: Yes Medical Record Reviewed: Yes Interpretation(s) chest x-ray - CONCLUSION: Possible right lung mass and noncontrast chest CT is suggested to further characterize. Differential Diagnosis COPD exacerbation versus pneumonia versus pneumothorax versus PE versus ACS Narrative Course 51-year-old female presents to the emergency department for evaluation of cough , congestion, fevers that started yesterday. EKG shows sinus rhythm, heart rate 82, no acute ST changes. CBC, BMP, BNP, magnesium, CK, troponin, d-dimer, PTT, PTT/INR ordered and pending. Chest x-ray is ordered and pending. Patient is given DuoNeb 3 and Solu-Medrol 125 mg. CBC shows leukocytosis of 11.6. BMP shows BUN 19, creatinine of 1.13. BNP is 17. Magnesium is 1.8. CK is 118. Troponin is less than 0.02. D-dimer is elevated at 0.73. Coags are unremarkable. Chest x-ray shows a possible right lung mass, recommends noncontrast chest CT. CT pulmonary angiogram is ordered due to elevated d-dimer. CT pulmonary angiogram is pending. Dr. Fowler will resume care and disposition of patient. Stefany Kumari Mar 14, 2017 18:30
[2017-03-14] MEDS: RESP: ALBUTEROL 2.5 MG/IPRATROPIUM 0.5 MG NEB (SCH) INH ×2 (18:34→18:35)
[2017-03-14 18:52] VITALS: BP 119/59; PULSE 91; RESP 24; O2SAT 100
--- NOTE | 2017-03-14 18:54 | RADRPT ---
EXAM DATE/TIME: 03/14/2017 18:32 [facility] COMPARISON: CHEST SINGLE AP, December 11, 2016, 17:54. INDICATIONS : Chest pain MEDICAL HISTORY : Congestive heart failure. Emphysema. Chronic obstructive pulmonary SURGICAL HISTORY : None. ENCOUNTER: Initial ACUITY: 1 day PAIN SCORE: 7/10 LOCATION: chest FINDINGS: Left proximal humeral enchondroma is again seen not changed. There is however an approximate 3.3 cm m asslike area possibly consolidation right midlung not present previously. Heart and mediastinum are u nremarkable for technique. CONCLUSION: Possible right lung mass and noncontrast chest CT is suggested to further characterize. Landy Red MD on March 14, 2017 at 18:51 Board Certified Radiologist. This report was verified electronically.
[2017-03-14] MEDS ORDERED: BENZ100 PO (19:01)
[2017-03-14] MEDS ORDERED: LEVO750T3 PO (19:01)
[2017-03-14] MEDS ORDERED: CALC600T25 PO (19:01)
[2017-03-14 19:22] LABS: AUTOMATED NEUTROPHIL # 5.9 TH/MM3 (1.8-7.7); BASOPHIL # 0.1 TH/MM3 (0-0.2); EOSINOPHIL # 0.5 TH/MM3 (0-0.4); EOSINOPHIL % 4.3 % (0.0-4.0); HEMATOCRIT 41.8 % (35.0-46.0); HEMO FLAGS DIFF FINAL; LYMPH % 33.1 % (9.0-44.0); LYMPHOCYTE # 3.8 TH/MM3 (1.0-4.8); MEAN CELL VOLUME 91.7 FL (80.0-100.0); MEAN CORPUSCULAR HEMOGLOBIN 30.9 PG (27.0-34.0); MEAN CORPUSCULAR HGB CONC 33.6 % (32.0-36.0); MONO % 10.9 % (0.0-8.0); NEUT % 50.7 % (16.0-70.0); PLATELET COUNT 324 TH/MM3 (150-450); RED BLOOD COUNT 4.56 MIL/MM3 (4.00-5.30); RED CELL DISTRIBUTION WIDTH 13.6 % (11.6-17.2); WHITE BLOOD COUNT 11.6 TH/MM3 (4.0-11.0)
[2017-03-14 19:34] LABS: APTT (PATIENT) 28.6 SEC (24.3-30.1); PROTHROMBIN TIME - PATIENT 11.4 SEC (9.8-11.6)
[2017-03-14 20:00] LABS: ANION GAP 6 MEQ/L (5-15); BICARBONATE 27.4 MEQ/L (21.0-32.0); BLOOD UREA NITROGEN 19 MG/DL (7-18); CHLORIDE 104 MEQ/L (98-107); CREATINE KINASE 118 U/L (26-192); GLOMERULAR FILTRATION RATE 51 ML/MIN (>89); MAGNESIUM 1.8 MG/DL (1.5-2.5); SODIUM (NA) 137 MEQ/L (136-145)
[2017-03-14 20:15] LABS: CKMB 2.3 NG/ML (0.5-3.6)
[2017-03-14] MEDS ORDERED: ONDANSETRON HCL 4 MG/2 ML VIAL IV PUSH ONE (20:45)
[2017-03-14] MEDS ORDERED: MORPHINE SULFATE 8 MG/ML INJ IV PUSH ONE (20:45)
[2017-03-14 20:55] VITALS: BP 113/68; PULSE 101; RESP 22; O2SAT 96
[2017-03-14] MEDS ORDERED: IOHEXOL 350 MG/ML 10 ML VIAL (for RAD DIAG) IV ONE (22:32)
--- NOTE | 2017-03-14 23:18 | RADRPT ---
EXAM DATE/TIME: 03/14/2017 22:34 [facility] COMPARISON: CT PULMONARY ANGIOGRAM, September 27, 2015, 2:35. INDICATIONS : Chest pain. IV CONTRAST: 75 cc Omnipaque 350 (iohexol) IV RADIATION DOSE: 23.18 CTDIvol (mGy) MEDICAL HISTORY : Seizures. Stroke Chronic obstructive pulmonary disease.Hypertension. Gastric cancer. Cervical cancer. Hepatitis C. Congestive heart failure. Substance abuse. SURGICAL HISTORY : section. Partial bowel removal. Partial stomach removal. ENCOUNTER: Initial ACUITY: 1 day PAIN SCALE: 10/10 LOCATION: chest TECHNIQUE: Volumetric scanning of the chest was performed using a pulmonary embolism protocol MIP images were re constructed. Using automated exposure control and adjustment of the mA and/or kV according to patien t size, radiation dose was kept as low as reasonably achievable to obtain optimal diagnostic quality images. DICOM format image data is available electronically for review and comparison. Follow-up recommendations for incidentally detected pulmonary nodules are based at a minimum on nodul e size and patient risk factors according to Fleischner Society Guidelines. FINDINGS: PULMONARY ARTERIES: No filling defects are seen in the pulmonary arteries through the segmental level. LUNGS: New Area of parenchymal consolidation in the posterior right lower lung. There is a smaller infiltrat e in the right upper lung. There is evidence of central lobar emphysema. The left lung is grossly tish ar. PLEURAE: There is no pleural thickening or pleural effusion. MEDIASTINUM: There is good visualization of the great vessels of the middle mediastinum. No evidence of mediastin al or hilar adenopathy/mass. MUSCULOSKELETAL: Within normal limits for patient age. MISCELLANEOUS: The visualized upper abdominal organs demonstrate no acute abnormality. CONCLUSION: 1. No evidence of pulmonary embolism. 2. There is a new area of parenchymal consolidation in the posterior right lower lung suggestive of p neumonia. There are is also a smaller infiltrate in the right upper lung. 3. Central lobar emphysema. Norbert Srivastava MD on March 14, 2017 at 23:13 Board Certified Radiologist. This report was verified electronically.
[2017-03-14] MEDS ORDERED: ZITHTAB PO (23:35)
[2017-03-14] MEDS ORDERED: CEFD300C PO (23:35)
[2017-03-14] MEDS ORDERED: PRED20 PO (23:35)
[2017-03-14] MEDS ORDERED: PERC5TAB12 PO (23:35)
[2017-03-14] MEDS ORDERED: ZOFR4TAB PO (23:35)
--- NOTE | 2017-03-14 23:35 | PD ---
Data Data Last Documented VS Vital Signs Date Time Temp Pulse Resp B/P Pulse Ox O2 Delivery O2 Flow Rate FiO2 03/14/17 20:55 101 22 113/68 96 2 03/14/17 18:52 Nasal Cannula 03/14/17 17:53 97.9 Orders Electrocardiogram (03/14/17 ) Complete Blood Count With Diff (03/14/17 18:22) Basic Metabolic Panel (Bmp) (03/14/17 18:22) B-Type Natriuretic Peptide (03/14/17 18:22) D-Dimer (03/14/17 18:22) Act Partial Throm Time (Ptt) (03/14/17 18:22) Prothrombin Time / Inr (Pt) (03/14/17 18:22) Magnesium (Mg) (03/14/17 18:22) Ckmb (Isoenzyme) Profile (03/14/17 18:22) Troponin I (03/14/17 18:22) Iv Access Insert/Monitor (03/14/17 18:22) Ecg Monitoring (03/14/17 18:) Oximetry (03/14/17 18:22) Oxygen Administration (03/14/17 18:22) Chest, Single Ap (03/14/17 18:22) Sodium Chloride 0.9% Flush (Ns Flush) (03/14/17 18:30) Methylprednisolone So Succ Inj (Solumedr (03/14/17 18:30) Albuterol-Ipratropium Neb (Duoneb Neb) (03/14/17 18:30) Ct Pulmonary Angiogram (03/14/17 ) CKMB (03/14/17 18:45) CKMB% (03/14/17 18:45) Ondansetron Inj (Zofran Inj) (03/14/17 20:45) Morphine Inj (Morphine Inj) (03/14/17 20:45) Iohexol 350 Inj (Omnipaque 350 Inj) (03/14/17 22:32) Labs Laboratory Tests Test 03/14/17 18:45 White Blood Count 11.6 TH/MM3 Red Blood Count 4.56 MIL/MM3 Hemoglobin 14.1 GM/DL Hematocrit 41.8 % Mean Corpuscular Volume 91.7 FL Mean Corpuscular Hemoglobin 30.9 PG Mean Corpuscular Hemoglobin 33.6 % Concent Red Cell Distribution Width 13.6 % Platelet Count 324 TH/MM3 Mean Platelet Volume 10.0 FL Neutrophils (%) (Auto) 50.7 % Lymphocytes (%) (Auto) 33.1 % Monocytes (%) (Auto) 10.9 % Eosinophils (%) (Auto) 4.3 % Basophils (%) (Auto) 1.0 % Neutrophils # (Auto) 5.9 TH/MM3 Lymphocytes # (Auto) 3.8 TH/MM3 Monocytes # (Auto) 1.3 TH/MM3 Eosinophils # (Auto) 0.5 TH/MM3 Basophils # (Auto) 0.1 TH/MM3 CBC Comment DIFF FINAL Differential Comment Prothrombin Time 11.4 SEC Prothromb Time International 1.0 RATIO Ratio Activated Partial 28.6 SEC Thromboplast Time D-Dimer Quantitative (PE/DVT) 0.73 MG/L FEU Sodium Level 137 MEQ/L Potassium Level 5.0 MEQ/L Chloride Level 104 MEQ/L Carbon Dioxide Level 27.4 MEQ/L Anion Gap 6 MEQ/L Blood Urea Nitrogen 19 MG/DL Creatinine 1.13 MG/DL Estimat Glomerular Filtration 51 ML/MIN Rate Random Glucose 99 MG/DL Calcium Level 9.6 MG/DL Magnesium Level 1.8 MG/DL Total Creatine Kinase 118 U/L Creatine Kinase MB 2.3 NG/ML Troponin I LESS THAN 0.02 NG/ML B-Type Natriuretic Peptide 17 PG/ML MDM Supervised Visit with BEBETO: Yes Narrative Course The history, exam, and medical decision-making in the associated midlevel provider note were completed with my assistance. I reviewed and agree with the findings presented. I attest that I had a [id number] encounter with the patient on the same day, and personally performed and documented my assessment and findings in the medical record. *My assessment and Findings: This is a 51 year old female who presents to the emergency department with shortness of breath, cough, and fevers. She has a history of COPD. Chest x-ray demonstrated a possible mass in the right lung. CT demonstrates pneumonia. Patient is in no distress. I think she is appropriate for outpatient prednisone and antibiotic therapy. Diagnosis Primary Impression: Pneumonia Qualified Code: J18.9 - Pneumonia of right lung due to infectious organism, unspecified part of lung Patient Instructions: General Instructions Additional Instruction: If you develop severe shortness of breath, chest pain, or difficulty breathing return to the emergency department. Use albuterol every 4 hours for the next 2 days. Then use as needed for wheezing. Complete your course of steroids. Complete your course of antibiotics. Follow up with your primary care physician in 2-3 days if your symptoms have not improved. Med/Other Pt SpecificInfo: Prescription(s) given Scripts Ondansetron (Zofran)4 Mg Tab4 Mg PO Q6HR PRN (NAUSEA OR VOMITING) #10 TAB Ref 0 Prov:Jessy Fowler MD 03/14/17 Oxycodone-Acetaminophen (Percocet)5-325 mg Tab1 Tab PO Q6H PRN (PAIN) #10 TAB Ref 0 Prov:Jessy Fowler MD 03/14/17 Azithromycin (Zithromax Z-Jose)250 Mg [id number] Mg PO DIRECTED #1 DSPK Ref 0 500 MG (2 tabs) day 1, then 1 tab days 2-5. Prov:Jessy Fowler MD 03/14/17 Cefdinir 300 Mg [id number] Mg PO BID 7 Days Ref 0 Prov:Jessy Fowler MD 03/14/17 Prednisone 20 Mg Tab40 Mg PO DAILY 4 Days Prov:Jessy Fowler MD 03/14/17 Disposition: 01 DISCHARGE HOME Condition: Stable eJssy Fowler MD Mar 14, 2017 23:35
[2017-03-14] MEDS ORDERED: oxyCODONE/ACETAMINOPHEN 5 MG/325 MG TAB PO ONE (23:45)
[2017-03-14] MEDS ORDERED: cefTRIAXone INJ 1,000 MG in SODIUM CHLORIDE 0.9% INJ 100 ML IV ONE (23:45)
[2017-03-14] MEDS ORDERED: ONDANSETRON ODT 4 MG TAB PO ONE (23:45)
[2017-03-15 00:10] VITALS: BP 119/72; PULSE 98; RESP 20; O2SAT 96
--- NOTE | 2017-03-15 19:29 | EKG ---
Date Performed: 03/14/2017 Time Performed: 18:19:40 PTAGE: 51 years EKG: Sinus rhythm NORMAL ECG PREVIOUS TRACING 12/11/2016 18.06.43 Since previous tracing, no significant change noted DOCTOR: Yasmany Membreno Interpretating Date/Time 03/15/2017 19:29:25
== END 2017-03-15 01:17 | disposition home or self-care (01) ==
LOC: NEPC 17:50
DX: J18.9 Pneumonia, unspecified organism (principal); J44.9 Chronic obstructive pulmonary disease, unspecified; D72.829 Elevated white blood cell count, unspecified; I50.9 Heart failure, unspecified; I10 Essential (primary) hypertension; R56.9 Unspecified convulsions; F25.9 Schizoaffective disorder, unspecified; M06.9 Rheumatoid arthritis, unspecified; B19.20 Unspecified viral hepatitis C without hepatic coma; Z86.73 Personal history of transient ischemic attack (TIA), and cerebral infarction without residual deficits
CPT/HCPCS: 71010; 71275; 80048; 82550; 82552; 83735; 83880; 84484; 85025; 85379; 85610; 85730; 93005; 94640; 94664; 96374; 96375; 99285; J0696; J2270; J2405; J2930; Q9967

== ENCOUNTER 2017-04-02 15:58 | Emergency (ER) | payer OTHER ==
[~2017-04-02] VITALS: Ht 157.5 cm; Wt 60.0 kg
[~2017-04-02 15:58] MED LIST changes: -ASPI81CH CHEW; +ASPI81CH PO; +BENZ100 PO; -CALC500T35; +CALC600T25 PO; +CEFD300C PO; -IPRA1POW8; +LEVO750T3 PO; +PERC5TAB12 PO; -POTA75TA; +PRED20 PO; -UMEC1AER INH; -VITA100C6 CHEW; +ZITHTAB PO; +ZOFR4TAB PO
[2017-04-02 16:06] VITALS: BP 132/78; PULSE 89; RESP 17; TEMP 97.8; O2SAT 94
[2017-04-02] MEDS ORDERED: LIDO4CRE5 RECTAL (17:56)
[2017-04-02] MEDS ORDERED: TUCKPAD5 TOPICAL (17:56)
--- NOTE | 2017-04-02 17:56 | PD ---
HPI Chief Complaint: Lump, Cyst, Hernia Time Seen by Provider: 17:43 Travel History International Travel<30 days: No Contact w/Intl Traveler<30days: No Traveled to known affect area: No History of Present Illness HPI This is a 51-year-old female who presents to the emergency department with a lump on her rectum that's painful, constant, worse with bowel movements, improved with rest. She is going to her primary care physician to get a referral but the pain was too severe so she came to the emergency department. She says she just needs something for pain. She denies any fevers or chills. PFSH Past Medical History Hx Anticoagulant Therapy: Yes (ASA) Arthritis: Yes (back and and neck) Asthma: Yes ( CHILD) Autoimmune Disease: No Bipolar Disorder: Yes Anxiety: Yes Depression: Yes Heart Rhythm Problems: No Cancer: Yes (Gastric and Cervical) Cardiovascular Problems: Yes (CHF) High Cholesterol: No Chemotherapy: Yes (STOMACH, CERVICAL) Chest Pain: No Congestive Heart Failure: Yes COPD: Yes (oxygen dependent) Cerebrovascular Accident: Yes (TIA ) Diabetes: No Diminished Hearing: No Endocrine: No Gastrointestinal Disorders: Yes (GASTRIC CANCER, GERD, HX OF STOMACH ULCERS, ESOPHAGEAL STRICTURES/DILATION) GERD: Yes Genitourinary: Yes (GENITAL HERPES, HPV) Headaches: Yes Hepatitis: Yes (c) Hiatal Hernia: No Hypertension: Yes Immune Disorder: Yes (HX OF RHEUMATOID ARTHRITIS) Kidney Stones: Yes Medical other: Yes (HX OF ANEMIA, GASTRIC DUMPING SYNDROME) Musculoskeletal: Yes (CHRONIC NECK PAIN, BACK, SHOULDER, RHEUMATOID ARTHRITIS) Neurologic: Yes (SEIZURES 2-3 YEARS, 18 YO HEAD INJURY, STROKE 2000, MIGRAINES) Psychiatric: Yes (SCHIZOAFFECTIVE DISORDER, POST TRAUMATIC STRESS DISORDER, OCD) Reproductive: Yes (CERVICAL CA, ABNORMAL VAGINAL BLEEDING) Respiratory: Yes (4L [place], COPD) Immunizations Current: Yes Migraines: Yes Myocardial Infarction: Yes Radiation Therapy: Yes (2010) Renal Failure: No Seizures: Yes Sickle Cell Disease: No Sleep Apnea: No Thyroid Disease: No Ulcer: Yes PNEUMOCCOCAL Vaccine (Year): 2 ?: Not Menopausal: Yes : 4 Para: 3 : 1 Ovarian Cysts: Yes Dilation and Curettage (D&C): Yes Past Surgical History Abdominal Surgery: Yes (06/16/10 PARTIAL BOWEL AND STOMACH REMOVAL FOR CA.-- CHEMO/RADIATION 2009) AICD: No Arteriovenous Shunt: No Body Medical Devices: CLAMPS FROM STOMACH SURGERY, TITANIUM PLATE IN HEAD Cardiac Surgery: No Section: Yes (x2) Ear Surgery: No Endocrine Surgery: No Eye Surgery: No Genitourinary Surgery: No Gynecologic Surgery: Yes (C SECTION X 2) Insulin Pump: No Joint Replacement: No Neurologic Surgery: Yes (CRAINIOTOMY AFTER HEAD INJURY AT 18 YO) Oral Surgery: No Pacemaker: No Thoracic Surgery: No Other Surgery: Yes (gastrectomy ) Social History Alcohol Use: No (hx) Tobacco Use: Yes (QUIT FOUR MONTHS AGO ) Substance Use: No (QUIT 7 YEARS AGO ) Allergies-Medications (Allergen,Severity, Reaction): Coded Allergies: Codeine (Verified Adverse Reaction, Severe, NAUSEA, ITCHING, 04/02/17) Lortab (Verified Adverse Reaction, Intermediate, NAUSEA/VOMITING, 04/02/17) Percocet (Verified Adverse Reaction, Intermediate, NAUSEA/VOMITING, 04/02/17 ) *MDRO Multi-Drug Resistant Organism (Verified Adverse Reaction, Unknown, ) Pt. reports hx of MRSA. MRSA PCR Screen negative 06/20/15. Reported Meds & Prescriptions Reported Meds & Active Scripts Active Zofran (Ondansetron HCl) 4 Mg Tab 4 Mg PO Q6HR PRN Percocet (Oxycodone-Acetaminophen) 5-325 mg Tab 1 Tab PO Q6H PRN Zithromax Z-Jose (Azithromycin) 250 Mg Dspk 250 Mg PO DIRECTED 500 MG (2 tabs) day 1, then 1 tab days 2-5. Cefdinir 300 Mg Cap 300 Mg PO BID 7 Days Reported Tessalon Perles (Benzonatate) 100 Mg Cap 100 Mg PO TID PRN Levofloxacin 750 Mg Tablet 750 Mg PO DAILY Calcium (Calcium Carbonate) 600 Mg Tab 600 Mg PO BID B Complex (B-Complex Vitamins) 1 Cap 1 Cap PO DAILY Vitamin D3 (Cholecalciferol) 1,000 Unit Chew 1,000 Units CHEW DAILY Proair Respiclick Inh (Albuterol Sulfate) 90 Mcg/Act Aerp 1 Puff INH Q4H PRN Zovirax (Acyclovir) 800 Mg Tab 800 Mg PO BID Flonase Nasal [place] (Fluticasone Nasal [place]) 50 Mcg/Act [place] 50 Mcg EACH NARE BID Aspirin 81 Mg Chew 81 Mg CHEW DAILY Albuterol Neb (Albuterol Sulfate) 2.5 Mg/0.5 Ml Neb 2.5 Mg NEB Q4HR NEB PRN Note: The Albuterol Sulfate Inhalation Solution is concentrated and must be diluted. Read complete instructions carefully before using. Review of Systems Except as stated in HPI: all other systems reviewed are Neg Physical Exam Narrative GENERAL:Well appearing, no acute distress SKIN: Focused skin assessment warm and dry. HEAD: Atraumatic. Normocephalic. EYES: Pupils equal and round. No injection or drainage. ENT: Moist mucous membranes NECK: Trachea midline. CARDIOVASCULAR: Regular rate and rhythm. No murmur appreciated. RESPIRATORY: Clear to auscultation. Breath sounds equal bilaterally. GASTROINTESTINAL: Abdomen soft, non-tender, nondistended. Pea sized firm nodule at the anal canal, tender MUSCULOSKELETAL: No obvious deformities. NEUROLOGICAL: Awake and alert. No obvious cranial nerve deficits. Moving all extremities. PSYCHIATRIC: Appropriate mood and affect; insight and judgment normal. Data Data Last Documented VS Vital Signs Date Time Temp Pulse Resp B/P Pulse Ox O2 Delivery O2 Flow Rate FiO2 04/02/17 16:06 97.8 89 17 132/78 94 Nasal Cannula 4 Orders Ketorolac Inj (Toradol Inj) (04/02/17 18:00) MDM Medical Decision Making Medical Screen Exam Complete: Yes Emergency Medical Condition: Yes Interpretation(s) Afebrile, no tachycardia, normotensive Differential Diagnosis Lymph node, cyst, abscess, hemorrhoid Narrative Course This is a 51-year-old female who presents to the emergency department with a small painful nodule on her rectum. She is requesting pain medicine. She has stated allergies to codeine, Lortab and Percocet. She was seen in the emergency department earlier this year in the setting of a recreational overdose on heroin. This concerns me that she may be displaying some drug seeking behavior. Patient will be given IM Toradol and prescribed lidocaine and witch cara topically for her symptoms. Diagnosis Primary Impression: Anal pain Patient Instructions: General Instructions Med/Other Pt SpecificInfo: Prescription(s) given Scripts Witch Cara Topical (Tucks Medicated Topical)50 % Pad1 Pad TOPICAL Q4H PRN (PAIN /INFLAMMATION) #1 CONTAINER Ref 0 Prov:Jessy Fowler MD 04/02/17 Lidocaine Rectal 5 % Cream1 Applic RECTAL DAILY PRN (PAIN) #1 TUBE Ref 0 Prov:Jessy Fowler MD 04/02/17 Disposition: 01 DISCHARGE HOME Condition: Stable Jessy Fowler MD Apr 02, 2017 17:56
[2017-04-02] MEDS ORDERED: KETOROLAC TROMETHAMINE 60 MG/2 ML (IM) VIAL IM ONE (18:00)
[2017-04-02] MEDS ORDERED: TYLE325T PO (18:28)
[2017-04-02] MEDS ORDERED: OXYGEN NAS.CANULA (18:28)
== END 2017-04-02 18:40 | disposition home or self-care (01) ==
LOC: NEPC 15:58
DX: K62.89 Other specified diseases of anus and rectum (principal); Z87.891 Personal history of nicotine dependence; I11.0 Hypertensive heart disease with heart failure; I50.9 Heart failure, unspecified; I25.2 Old myocardial infarction; J44.9 Chronic obstructive pulmonary disease, unspecified; M06.9 Rheumatoid arthritis, unspecified; Z85.028 Personal history of other malignant neoplasm of stomach; Z85.41 Personal history of malignant neoplasm of cervix uteri; Z86.73 Personal history of transient ischemic attack (TIA), and cerebral infarction without residual deficits; Z87.19 Personal history of other diseases of the digestive system; Z99.81 Dependence on supplemental oxygen
CPT/HCPCS: 96372; 99284; J1885

== ENCOUNTER 2017-10-15 10:15 | Emergency (ER) | payer OTHER ==
[~2017-10-15] VITALS: Ht 157.5 cm; Wt 60.0 kg
[~2017-10-15 10:15] MED LIST changes: +ASPI-516 PO; -ASPI81CH PO; -CALC600T25 PO; +CALC600T5 PO; -CEFD300C PO; -LEVO750T3 PO; +LIDO4CRE5 RECTAL; +OXYGEN NAS.CANULA; -PERC5TAB12 PO; -PRED20 PO; +TUCKPAD5 TOPICAL; +TYLE325T PO; -ZITHTAB PO; -ZOFR4TAB PO
[2017-10-15 10:21] VITALS: BP 122/82; PULSE 109; RESP 14; TEMP 99.6; O2SAT 95
[2017-10-15 10:37] VITALS: BP 138/58; PULSE 107; RESP 28; O2SAT 98
[2017-10-15] MEDS ORDERED: SODIUM CHLORIDE 0.9% FLUSH 10 ML FLUSH IVF PRN (11:00)
[2017-10-15] MEDS ORDERED: methylPREDNISolone SOD SUCC 125 MG/2 ML VIAL IV PUSH ONE (11:00)
[2017-10-15] MEDS: RESP: ALBUTEROL 2.5 MG/IPRATROPIUM 0.5 MG NEB (SCH) INH ×2 (11:02→11:03)
[2017-10-15 11:04] VITALS: RESP 18; O2SAT 98
[2017-10-15 11:16] LABS: BASOPHIL # 0.1 TH/MM3 (0-0.2); BASOPHIL % 0.8 % (0.0-2.0); EOSINOPHIL # 0.3 TH/MM3 (0-0.4); EOSINOPHIL % 2.4 % (0.0-4.0); HEMATOCRIT 39.7 % (35.0-46.0); HEMOGLOBIN 13.5 GM/DL (11.6-15.3); LYMPHOCYTE # 1.9 TH/MM3 (1.0-4.8); MEAN CELL VOLUME 94.3 FL (80.0-100.0); MEAN CORPUSCULAR HGB CONC 33.9 % (32.0-36.0); MEAN PLATELET VOLUME 9.9 FL (7.0-11.0); MONO % 7.8 % (0.0-8.0); MONOCYTE # 1.1 TH/MM3 (0-0.9); PLATELET COUNT 347 TH/MM3 (150-450); RED BLOOD COUNT 4.21 MIL/MM3 (4.00-5.30); RED CELL DISTRIBUTION WIDTH 13.5 % (11.6-17.2); WHITE BLOOD COUNT 14.5 TH/MM3 (4.0-11.0)
--- NOTE | 2017-10-15 11:21 | PD ---
HPI Chief Complaint: Respiratory Symptoms Time Seen by Provider: 10:35 Travel History International Travel<30 days: No Contact w/Intl Traveler<30days: No Traveled to known affect area: No History of Present Illness HPI 52-year-old female with history of COPD on home O2, sent in by her primary care physician Dr. Martins for evaluation of shortness of breath, COPD exacerbation. The patient reports fevers, chills, generalized malaise, cough productive of greenish sputum for the last week. Dyspnea is at rest. PFSH Past Medical History Hx Anticoagulant Therapy: Yes (ASA) Arthritis: Yes (back and and neck) Asthma: Yes ( CHILD) Autoimmune Disease: No Bipolar Disorder: Yes Anxiety: Yes Depression: Yes Heart Rhythm Problems: No Cancer: Yes (Gastric and Cervical) Cardiovascular Problems: Yes High Cholesterol: No Chemotherapy: Yes (STOMACH, CERVICAL) Chest Pain: No Congestive Heart Failure: Yes COPD: Yes (oxygen dependent) Cerebrovascular Accident: Yes (TIA ) Diabetes: No Diminished Hearing: No Endocrine: No Gastrointestinal Disorders: Yes (GASTRIC CANCER, GERD, HX OF STOMACH ULCERS, ESOPHAGEAL STRICTURES/DILATION) GERD: Yes Genitourinary: Yes (GENITAL HERPES, HPV) Headaches: Yes Hepatitis: Yes (c) Hiatal Hernia: No Hypertension: Yes Immune Disorder: Yes (HX OF RHEUMATOID ARTHRITIS) Kidney Stones: Yes Medical other: Yes (HX OF ANEMIA, GASTRIC DUMPING SYNDROME) Musculoskeletal: Yes (CHRONIC NECK PAIN, BACK, SHOULDER, RHEUMATOID ARTHRITIS) Neurologic: Yes (SEIZURES 2-3 YEARS, 18 YO HEAD INJURY, STROKE 2000, MIGRAINES) Psychiatric: Yes (SCHIZOAFFECTIVE DISORDER, POST TRAUMATIC STRESS DISORDER, OCD) Reproductive: Yes (CERVICAL CA, ABNORMAL VAGINAL BLEEDING) Respiratory: Yes Immunizations Current: Yes Migraines: Yes Myocardial Infarction: Yes Radiation Therapy: Yes (2010) Renal Failure: No Seizures: Yes Sickle Cell Disease: No Sleep Apnea: No Thyroid Disease: No Ulcer: Yes Influenza Vaccination: No PNEUMOCCOCAL Vaccine (Year): 2 ?: Not Menopausal: Yes : 4 Para: 3 : 1 Ovarian Cysts: Yes Dilation and Curettage (D&C): Yes Past Surgical History Abdominal Surgery: Yes (06/16/10 PARTIAL BOWEL AND STOMACH REMOVAL FOR CA.-- CHEMO/RADIATION 2009) AICD: No Arteriovenous Shunt: No Body Medical Devices: CLAMPS FROM STOMACH SURGERY, TITANIUM PLATE IN HEAD Cardiac Surgery: No Section: Yes (x2) Ear Surgery: No Endocrine Surgery: No Eye Surgery: No Genitourinary Surgery: No Gynecologic Surgery: Yes (C SECTION X 2) Insulin Pump: No Joint Replacement: No Neurologic Surgery: Yes (CRAINIOTOMY AFTER HEAD INJURY AT 18 YO) Oral Surgery: No Pacemaker: No Thoracic Surgery: No Other Surgery: Yes (gastrectomy ) Social History Alcohol Use: No (hx) Tobacco Use: No (quit a week ago) Substance Use: No (QUIT 7 YEARS AGO ) Allergies-Medications (Allergen,Severity, Reaction): Coded Allergies: codeine (Unverified Adverse Reaction, Severe, NAUSEA, ITCHING, 10/15/17) acetaminophen (Unverified Adverse Reaction, Intermediate, NAUSEA/VOMITING , 10/15/17) hydrocodone (Unverified Adverse Reaction, Intermediate, NAUSEA/VOMITING, ) oxycodone (Unverified Adverse Reaction, Intermediate, NAUSEA/VOMITING, ) *MDRO Multi-Drug Resistant Organism (Verified Adverse Reaction, Unknown, ) Pt. reports hx of MRSA. MRSA PCR Screen negative 06/20/15. Reported Meds & Prescriptions Reported Meds & Active Scripts Active Reported Stiolto Respimat Inh (Tiotropium-Olodaterol Inh) 2.5-2.5 Mcg/Act Aero 2 Puff INH DAILY Gabapentin 100 Mg Cap 100 Mg PO TID Flexeril (Cyclobenzaprine HCl) 10 Mg Tab 10 Mg PO TID Acyclovir 400 Mg Tab 400 Mg PO TID [Oxygen] 2-4 Liter ALEKSANDER.CANULA CONTINUOUS Tylenol (Acetaminophen) 325 Mg Tab 650 Mg PO Q6H PRN Proair Respiclick Inh (Albuterol Sulfate) 90 Mcg/Act Aerp 1 Puff INH Q4H PRN Flonase Nasal [place] (Fluticasone Nasal [place]) 50 Mcg/Act [place] 1 [place] EACH NARE BID Aspirin 81 Mg Chew 81 Mg PO DAILY Albuterol Neb (Albuterol Sulfate) 2.5 Mg/0.5 Ml Neb 2.5 Mg NEB Q4HR NEB PRN Note: The Albuterol Sulfate Inhalation Solution is concentrated and must be diluted. Read complete instructions carefully before using. Review of Systems Except as stated in HPI: all other systems reviewed are Neg Physical Exam Narrative GENERAL: Well-developed, well-nourished, comfortable, no apparent distress. SKIN: Focused skin assessment warm/dry. No rash. HEAD: Atraumatic. Normocephalic. EYES: Pupils equal and round. No scleral icterus. No injection or drainage. ENT: Mucous membranes pink and moist. NECK: Trachea midline. No JVD. CARDIOVASCULAR: Regular rate and rhythm. RESPIRATORY: No accessory muscle use. Clear to auscultation. Breath sounds equal bilaterally. GASTROINTESTINAL: Abdomen soft, non-tender, nondistended. MUSCULOSKELETAL: No obvious deformities. No clubbing. No cyanosis. No edema. NEUROLOGICAL: Awake and alert. No obvious cranial nerve deficits. Motor grossly within normal limits. Normal speech. PSYCHIATRIC: Appropriate mood and affect; insight and judgment normal. Data Data Last Documented VS Vital Signs Date Time Temp Pulse Resp B/P (MAP) Pulse Ox O2 Delivery O2 Flow Rate FiO2 10/15/17 11:04 98 Nasal Cannula 3.00 10/15/17 11:04 18 10/15/17 10:37 107 10/15/17 10:21 99.6 Orders Orders Complete Blood Count With Diff (10/15/17 10:55) Comprehensive Metabolic Panel (10/15/17 10:55) B-Type Natriuretic Peptide (10/15/17 10:55) Act Partial Throm Time (Ptt) (10/15/17 10:55) Prothrombin Time / Inr (Pt) (10/15/17 10:55) Ckmb (Isoenzyme) Profile (10/15/17 10:55) Troponin I (10/15/17 10:55) Influenzae A/B Antigen (10/15/17 10:55) Blood Culture (10/15/17 10:55) Iv Access Insert/Monitor (10/15/17 10:55) Ecg Monitoring (10/15/17 10:55) Oximetry (10/15/17 10:55) Oxygen Administration (10/15/17 10:55) Chest, Single Ap (10/15/17 10:55) Sodium Chloride 0.9% Flush (Ns Flush) (10/15/17 11:00) Methylprednisolone So Succ Inj (Solumedr (10/15/17 11:00) Albuterol-Ipratropium Neb (Duoneb Neb) (10/15/17 11:00) Electrocardiogram (10/15/17 10:51) Labs Laboratory Tests Test 10/15/17 11:00 White Blood Count 14.5 TH/MM3 Red Blood Count 4.21 MIL/MM3 Hemoglobin 13.5 GM/DL Hematocrit 39.7 % Mean Corpuscular Volume 94.3 FL Mean Corpuscular Hemoglobin 32.0 PG Mean Corpuscular Hemoglobin Concent 33.9 % Red Cell Distribution Width 13.5 % Platelet Count 347 TH/MM3 Mean Platelet Volume 9.9 FL Neutrophils (%) (Auto) 76.0 % Lymphocytes (%) (Auto) 13.0 % Monocytes (%) (Auto) 7.8 % Eosinophils (%) (Auto) 2.4 % Basophils (%) (Auto) 0.8 % Neutrophils # (Auto) 11.0 TH/MM3 Lymphocytes # (Auto) 1.9 TH/MM3 Monocytes # (Auto) 1.1 TH/MM3 Eosinophils # (Auto) 0.3 TH/MM3 Basophils # (Auto) 0.1 TH/MM3 CBC Comment DIFF FINAL Differential Comment Prothrombin Time 10.1 SEC Prothromb Time International Ratio 1.0 RATIO Activated Partial Thromboplast Time 24.1 SEC Blood Urea Nitrogen 13 MG/DL Creatinine 0.62 MG/DL Random Glucose 110 MG/DL Total Protein 7.1 GM/DL Albumin 3.2 GM/DL Calcium Level 8.9 MG/DL Alkaline Phosphatase 99 U/L Aspartate Amino Transf (AST/SGOT) 20 U/L Alanine Aminotransferase (ALT/SGPT) 15 U/L Total Bilirubin 0.4 MG/DL Sodium Level 138 MEQ/L Potassium Level 4.2 MEQ/L Chloride Level 103 MEQ/L Carbon Dioxide Level 28.8 MEQ/L Anion Gap 6 MEQ/L Estimat Glomerular Filtration Rate 101 ML/MIN Total Creatine Kinase 95 U/L Troponin I LESS THAN 0.02 NG/ML B-Type Natriuretic Peptide 46 PG/ML [facility] Medical Decision Making Medical Screen Exam Complete: Yes Emergency Medical Condition: Yes Medical Record Reviewed: Yes Differential Diagnosis COPD exacerbation, pneumonia, influenza, Narrative Course Vital signs reviewed. The patient is tachycardic, however I spoke to the patient's physician Dr. Martins who states that she had received a breathing treatment prior to coming to the emergency department. Patient is on chronic oxygen as well. CBC: WBC 14.5, hemoglobin 13.5, hematocrit 39.7, platelets 347, neutrophils 76%. CMP is unremarkable. BNP is 46. Influenza is negative. Chest x-ray shows no acute disease. The patient was given 3 DuoNeb treatments and IV Solu-Medrol and on reassessment is sleeping comfortably. I discussed the patient with the patient' s primary care physician Dr. Martins who recommends discharging the patient home with Levaquin and prednisone. The patient tells me that Levaquin does not work for her and she would like another medication. I offered azithromycin and doxycycline, however the patient states that these medications also do not work. I will start her on Augmentin. She is certainly stable for discharge home with outpatient follow-up. She was advised on when to return to the emergency department. She verbalizes understanding and agreement with plan. Diagnosis Primary Impression: Bronchitis Additional Impression: COPD exacerbation Referrals: Merlin Martins MD 1 day Additional Instructions: Follow-up with a primary care physician this week. Return to the emergency department for worsening symptoms or any other concerns. Scripts Amoxicillin-Clavulanate (Augmentin) 875-125 Mg Tab 1 TAB PO BID for Infection for 7 Days, #14 TAB 0 Refills Prov: Edilberto Barrett MD 10/15/17 Prednisone (Prednisone) 50 Mg Tab 50 MG PO DAILY for 5 Days, #5 TAB 0 Refills Prov: Edilberto Barrett MD 10/15/17 Disposition: 01 DISCHARGE HOME Condition: Stable Edilberto Barrett MD Oct 15, 2017 11:21
[2017-10-15 11:23] LABS: PROTHROMBIN TIME - PATIENT 10.1 SEC (9.8-11.6)
[2017-10-15 11:43] LABS: ALBUMIN 3.2 GM/DL (3.4-5.0); ALKALINE PHOSPHATASE 99 U/L (45-117); ALT (GPT) 15 U/L (10-53); BICARBONATE 28.8 MEQ/L (21.0-32.0); BLOOD UREA NITROGEN 13 MG/DL (7-18); CALCIUM 8.9 MG/DL (8.5-10.1); CHLORIDE 103 MEQ/L (98-107); CREATININE 0.62 MG/DL (0.50-1.00); GLOMERULAR FILTRATION RATE 101 ML/MIN (>89); GLUCOSE,RANDOM 110 MG/DL (74-106); SODIUM (NA) 138 MEQ/L (136-145); TOTAL BILIRUBIN ADULT 0.4 MG/DL (0.2-1.0); TOTAL PROTEIN 7.1 GM/DL (6.4-8.2); TROPONIN I LESS THAN 0.02 NG/ML (0.02-0.05)
[2017-10-15] MEDS ORDERED: GABA100C4 PO (11:43)
[2017-10-15] MEDS ORDERED: ACYC400T PO (11:43)
[2017-10-15] MEDS ORDERED: TIOT1AER INH (11:43)
[2017-10-15] MEDS ORDERED: CYCL10TA PO (11:43)
[2017-10-15 11:44] LABS: AST (GOT) 20 U/L (15-37)
--- NOTE | 2017-10-15 11:49 | RADRPT ---
EXAM DATE/TIME: 10/15/2017 11:17 [facility] COMPARISON: CHEST SINGLE AP, March 14, 2017, 18:32. INDICATIONS : Very short of breath, weakness MEDICAL HISTORY : Emphysema. Chronic obstructive pulmonary disease. Congestive heart failure. SURGICAL HISTORY : None. ENCOUNTER: Subsequent ACUITY: 1 day PAIN SCORE: 0/10 LOCATION: Bilateral chest FINDINGS: A single view of the chest demonstrates the lungs to be symmetrically aerated without evidence of mas s, infiltrate or effusion. The cardiomediastinal contours are unremarkable. Osseous structures are intact. CONCLUSION: No acute disease. Kirk Benitez MD FACR on October 15, 2017 at 11:48 Board Certified Radiologist. This report was verified electronically.
[2017-10-15] MEDS ORDERED: AUGM875T3 PO (12:08)
[2017-10-15] MEDS ORDERED: PRED50 PO (12:08)
[2017-10-15] MEDS ORDERED: AMOXICILLIN/CLAVULANATE K 875 MG TAB PO ONE (12:15)
--- NOTE | 2017-10-15 22:29 | EKG ---
Date Performed: 10/15/2017 Time Performed: 10:51:27 PTAGE: 52 years EKG: Sinus rhythm NORMAL ECG PREVIOUS TRACING : 03/14/2017 18.19 Since the prior tracing, there has been no significant salazar ge DOCTOR: Isaac Rocha Interpretating Date/Time 10/15/2017 22:27:49
== END 2017-10-15 12:41 | disposition home or self-care (01) ==
LOC: NEPE 10:15
DX: J40 Bronchitis, not specified as acute or chronic (principal); J44.1 Chronic obstructive pulmonary disease with (acute) exacerbation; R00.0 Tachycardia, unspecified; R50.9 Fever, unspecified; R09.3 Abnormal sputum; I10 Essential (primary) hypertension; K21.9 Gastro-esophageal reflux disease without esophagitis; I25.2 Old myocardial infarction; Z99.81 Dependence on supplemental oxygen; Z87.39 Personal history of other diseases of the musculoskeletal system and connective tissue; Z86.59 Personal history of other mental and behavioral disorders; Z86.73 Personal history of transient ischemic attack (TIA), and cerebral infarction without residual deficits; Z86.69 Personal history of other diseases of the nervous system and sense organs; Z87.891 Personal history of nicotine dependence
CPT/HCPCS: 71045; 80053; 82550; 83880; 84484; 85025; 85610; 85730; 87040; 87804; 93005; 94640; 94664; 96374; 99285; J2930

== ENCOUNTER 2017-12-21 19:46 | Emergency (ER) | payer OTHER ==
[~2017-12-21 19:46] MED LIST changes: -ACYC-101 PO; +ACYC400T PO; +AUGM875T3 PO; -BENZ100 PO; -CALC600T5 PO; -CHOL100025 CHEW; +CYCL10TA PO; +GABA100C4 PO; -LIDO4CRE5 RECTAL; +PRED50 PO; +TIOT1AER INH; -TUCKPAD5 TOPICAL; -VITACAP7 PO
[2017-12-21 19:59] VITALS: BP 137/97; PULSE 98; RESP 21; TEMP 98.7; O2SAT 95
[2017-12-21] MEDS ORDERED: SODIUM CHLOR 0.9% 1000 ML INJ 1,000 ML IV SCH (20:34)
[2017-12-21] MEDS ORDERED: PANTOPRAZOLE SODIUM 40 MG VIAL IVP ONE (20:45)
[2017-12-21] MEDS ORDERED: SODIUM CHLORIDE 0.9% FLUSH 10 ML FLUSH IVF PRN (20:45)
--- NOTE | 2017-12-21 20:57 | PD ---
HPI Chief Complaint: GI Complaint Time Seen by Provider: 20:17 Travel History International Travel<30 days: No Contact w/Intl Traveler<30days: No Traveled to known affect area: No History of Present Illness HPI 52-year-old female presents to the emergency department for evaluation of rectal bleeding and left-sided chest pain. Patient states she has history of cervical cancer and gastric cancer. She states she underwent chemotherapy and radiation therapy as well as surgery. Patient states that she started with rectal bleeding today. She states that the blood filled up the toilet. She also reports having dark stools for the past week. Patient also reports left sided chest pain. She reports history of HPV anal warts, herpes simplex, emphysema on chronic O2. Patient is not on anticoagulants. She denies taking NSAIDs. Patient states that she is concerned she may have gastric cancer again. With further questioning, she states she is unsure she had vaginal or rectal bleeding. Current pain is 8/10, without radiation. Moderate severity. PFSH Past Medical History Hx Anticoagulant Therapy: Yes (ASA) Arthritis: Yes (back and and neck) Asthma: Yes ( CHILD) Autoimmune Disease: No Bipolar Disorder: Yes Anxiety: Yes Depression: Yes Heart Rhythm Problems: No Cancer: Yes (Gastric(2011) and Cervical) Cardiovascular Problems: Yes High Cholesterol: No Chemotherapy: Yes Chest Pain: No Congestive Heart Failure: Yes COPD: Yes (oxygen dependent) Cerebrovascular Accident: Yes Diabetes: No Diminished Hearing: No Endocrine: No Gastrointestinal Disorders: Yes (GASTRIC CANCER, GERD, HX OF STOMACH ULCERS, ESOPHAGEAL STRICTURES/DILATION) GERD: Yes Genitourinary: Yes (GENITAL HERPES, HPV) Headaches: Yes Hepatitis: Yes (c) Hiatal Hernia: No Hypertension: Yes Immune Disorder: Yes (HX OF RHEUMATOID ARTHRITIS) Kidney Stones: Yes Medical other: Yes (HX OF ANEMIA, GASTRIC DUMPING SYNDROME) Musculoskeletal: Yes (CHRONIC NECK PAIN, BACK, SHOULDER, RHEUMATOID ARTHRITIS) Neurologic: Yes (SEIZURES 2-3 YEARS, 18 YO HEAD INJURY, STROKE 2000, MIGRAINES) Psychiatric: Yes (SCHIZOAFFECTIVE DISORDER, POST TRAUMATIC STRESS DISORDER, OCD) Reproductive: Yes (CERVICAL CA, ABNORMAL VAGINAL BLEEDING) Respiratory: Yes Immunizations Current: Yes Migraines: Yes Myocardial Infarction: Yes Radiation Therapy: Yes (2010) Renal Failure: No Seizures: Yes Sickle Cell Disease: No Sleep Apnea: No Thyroid Disease: No Ulcer: Yes Tetanus Vaccination: < 5 Years PNEUMOCCOCAL Vaccine (Year): 2 ?: Not Menopausal: Yes : 4 Para: 3 : 1 Ovarian Cysts: Yes Dilation and Curettage (D&C): Yes Past Surgical History Abdominal Surgery: Yes (06/16/10 PARTIAL BOWEL AND STOMACH REMOVAL FOR CA.-- CHEMO/RADIATION 2009) AICD: No Arteriovenous Shunt: No Body Medical Devices: CLAMPS FROM STOMACH SURGERY, TITANIUM PLATE IN HEAD Cardiac Surgery: No Section: Yes (x2) Ear Surgery: No Endocrine Surgery: No Eye Surgery: No Genitourinary Surgery: No Gynecologic Surgery: Yes (C SECTION X 2) Insulin Pump: No Joint Replacement: No Neurologic Surgery: Yes (CRAINIOTOMY AFTER HEAD INJURY AT 18 YO) Oral Surgery: No Pacemaker: No Thoracic Surgery: No Other Surgery: Yes (gastrectomy ) Social History Alcohol Use: No (hx) Tobacco Use: No Substance Use: No (QUIT 7 YEARS AGO ) Allergies-Medications (Allergen,Severity, Reaction): Coded Allergies: codeine (Unverified Adverse Reaction, Severe, NAUSEA, ITCHING, 12/21/17) acetaminophen (Unverified Adverse Reaction, Intermediate, NAUSEA/VOMITING , 12/21/17) hydrocodone (Unverified Adverse Reaction, Intermediate, NAUSEA/VOMITING, ) oxycodone (Unverified Adverse Reaction, Intermediate, NAUSEA/VOMITING, ) *MDRO Multi-Drug Resistant Organism (Verified Adverse Reaction, Unknown, ) Pt. reports hx of MRSA. MRSA PCR Screen negative 06/20/15. Reported Meds & Prescriptions Reported Meds & Active Scripts Active Prednisone 50 Mg Tab 50 Mg PO DAILY 5 Days Reported Stiolto Respimat Inh (Tiotropium-Olodaterol Inh) 2.5-2.5 Mcg/Act Aero 2 Puff INH DAILY Gabapentin 100 Mg Cap 100 Mg PO TID Flexeril (Cyclobenzaprine HCl) 10 Mg Tab 10 Mg PO TID Acyclovir 400 Mg Tab 400 Mg PO TID [Oxygen] 2-4 Liter ALEKSANDER.CANULA CONTINUOUS Tylenol (Acetaminophen) 325 Mg Tab 650 Mg PO Q6H PRN Proair Respiclick Inh (Albuterol Sulfate) 90 Mcg/Act Aerp 1 Puff INH Q4H PRN Flonase Nasal [place] (Fluticasone Nasal [place]) 50 Mcg/Act [place] 1 [place] EACH NARE BID Aspirin 81 Mg Chew 81 Mg PO DAILY Albuterol Neb (Albuterol Sulfate) 2.5 Mg/0.5 Ml Neb 2.5 Mg NEB Q4HR NEB PRN Note: The Albuterol Sulfate Inhalation Solution is concentrated and must be diluted. Read complete instructions carefully before using. Review of Systems Except as stated in HPI: all other systems reviewed are Neg Physical Exam Narrative GENERAL: Well-nourished, well-developed female patient, afebrile. SKIN: Focused skin assessment warm/dry. HEAD: Normocephalic. Atraumatic. EYES: No scleral icterus. No injection or drainage. NECK: Supple, trachea midline. No JVD or lymphadenopathy. CARDIOVASCULAR: Regular rate and rhythm without murmurs, gallops, or rubs. RESPIRATORY: Breath sounds equal bilaterally. No accessory muscle use. Lungs sounds diminished throughout. GASTROINTESTINAL: Abdomen soft, non-tender, nondistended. MUSCULOSKELETAL: No cyanosis, or edema. She has tenderness to left chest wall. BACK: Nontender without obvious deformity. No CVA tenderness. RECTAL EXAM: No masses or tenderness. There is no stool in the vaginal vault. Mucous on my finger which was Hemoccult negative. This exam was done with RN at bedside. GENITOURINARY: Normal external genitalia without lesions or erythema. Vaginal vault without blood or drainage. Cervical os was closed without drainage. No cervical motion tenderness. Uterus nontender and nonenlarged. Bilateral adnexa nontender without masses. Exam was done with RN at bedside. Data Data Last Documented VS Vital Signs Date Time Temp Pulse Resp B/P (MAP) Pulse Ox O2 Delivery O2 Flow Rate FiO2 12/21/17 21:42 95 Nasal Cannula 2.00 12/21/17 19:59 98.7 98 21 137/97 (110) Orders Orders Complete Blood Count With Diff (12/21/17 20:34) Comprehensive Metabolic Panel (12/21/17 20:34) Prothrombin Time / Inr (Pt) (12/21/17 20:34) Act Partial Throm Time (Ptt) (12/21/17 20:34) Urinalysis - C+S If Indicated (12/21/17 20:34) Ecg Monitoring (12/21/17 20:34) Iv Access Insert/Monitor (12/21/17 20:34) Oximetry (12/21/17 20:34) Pantoprazole Inj (Protonix Inj) (12/21/17 20:45) Sodium Chlor 0.9% 1000 Ml Inj (Ns 1000 M (12/21/17 20:34) Sodium Chloride 0.9% Flush (Ns Flush) (12/21/17 20:45) Creatine Kinase (Cpk) (12/21/17 20:34) Troponin I (12/21/17 20:34) Magnesium (Mg) (12/21/17 20:34) Electrocardiogram (12/21/17 ) Chest, Single Ap (12/21/17 ) Lipase (12/21/17 20:34) Labs Laboratory Tests Test 12/21/17 20:58 12/21/17 22:15 12/21/17 22:22 White Blood Count 9.3 TH/MM3 Red Blood Count 4.59 MIL/MM3 Hemoglobin 14.5 GM/DL Hematocrit 43.2 % Mean Corpuscular Volume 94.1 FL Mean Corpuscular Hemoglobin 31.6 PG Mean Corpuscular Hemoglobin Concent 33.6 % Red Cell Distribution Width 13.8 % Platelet Count 324 TH/MM3 Mean Platelet Volume 10.0 FL Neutrophils (%) (Auto) 51.6 % Lymphocytes (%) (Auto) 35.7 % Monocytes (%) (Auto) 8.8 % Eosinophils (%) (Auto) 2.5 % Basophils (%) (Auto) 1.4 % Neutrophils # (Auto) 4.8 TH/MM3 Lymphocytes # (Auto) 3.3 TH/MM3 Monocytes # (Auto) 0.8 TH/MM3 Eosinophils # (Auto) 0.2 TH/MM3 Basophils # (Auto) 0.1 TH/MM3 CBC Comment DIFF FINAL Differential Comment Prothrombin Time 9.9 SEC Prothromb Time International Ratio 1.0 RATIO Activated Partial Thromboplast Time 23.8 SEC MDM Medical Decision Making Medical Screen Exam Complete: Yes Emergency Medical Condition: Yes Medical Record Reviewed: Yes Interpretation(s) Last Impressions Chest X-Ray 12/21/17 0000 Signed Impressions: Service Date/Time: Thursday, December 21, 2017 20:44 - CONCLUSION: No evidence of acute cardiopulmonary disease. Richy Castillo MD Differential Diagnosis Lower GI bleed versus upper GI bleed versus hemorrhoids versus UTI versus anemia versus ACS versus chest wall pain Narrative Course 52-year-old female presents to the emergency department for evaluation of rectal bleeding as well as left chest pain. EKG, CBC, CMP, lipase, magnesium, CK, troponin, PTT, PT/INR, UA are ordered and pending. Chest x-ray is ordered and pending. Patient is given Protonix 40 mg IV and normal saline 1 L IV bolus. EKG shows sinus rhythm, heart rate 79, no acute ST changes. CBC is unremarkable. CMP is pending. Lipase is pending. Magnesium is pending. CK is pending. Troponin is pending. Coags show no acute abnormality. UA is pending. Chest x-ray shows no evidence of acute abnormality. My attending physician, Dr. Dyer, will follow up on labs and UA. Stefany Kumari Dec 21, 2017 20:57
--- NOTE | 2017-12-21 21:10 | RADRPT ---
EXAM DATE/TIME: 12/21/2017 20:44 [facility] COMPARISON: CHEST SINGLE AP, October 15, 2017, 11:17. CHEST SINGLE AP, September 26, 2015, 23:23. INDICATIONS : Left sided chest pain. MEDICAL HISTORY : Congestive heart failure. Emphysema. Chronic obstructive pulmonary disease. SURGICAL HISTORY : None. ENCOUNTER: Initial ACUITY: 4 - 6 days PAIN SCORE: 10/10 LOCATION: Bilateral chest FINDINGS: A single view of the chest demonstrates the lungs to be symmetrically aerated without evidence of mas s, infiltrate or effusion. The cardiomediastinal contours are unremarkable. Left humeral head/neck enchondroma again noted, unchanged. CONCLUSION: No evidence of acute cardiopulmonary disease. Richy Castillo MD on December 21, 2017 at 21:08 Board Certified Radiologist. This report was verified electronically.
[2017-12-21 21:31] LABS: AUTOMATED NEUTROPHIL # 4.8 TH/MM3 (1.8-7.7); BASOPHIL # 0.1 TH/MM3 (0-0.2); BASOPHIL % 1.4 % (0.0-2.0); EOSINOPHIL # 0.2 TH/MM3 (0-0.4); EOSINOPHIL % 2.5 % (0.0-4.0); HEMATOCRIT 43.2 % (35.0-46.0); HEMOGLOBIN 14.5 GM/DL (11.6-15.3); LYMPH % 35.7 % (9.0-44.0); LYMPHOCYTE # 3.3 TH/MM3 (1.0-4.8); MEAN CELL VOLUME 94.1 FL (80.0-100.0); MEAN CORPUSCULAR HEMOGLOBIN 31.6 PG (27.0-34.0); MEAN CORPUSCULAR HGB CONC 33.6 % (32.0-36.0); MONO % 8.8 % (0.0-8.0); MONOCYTE # 0.8 TH/MM3 (0-0.9); NEUT % 51.6 % (16.0-70.0); PLATELET COUNT 324 TH/MM3 (150-450); RED BLOOD COUNT 4.59 MIL/MM3 (4.00-5.30); RED CELL DISTRIBUTION WIDTH 13.8 % (11.6-17.2); WHITE BLOOD COUNT 9.3 TH/MM3 (4.0-11.0)
[2017-12-21 21:42] VITALS: O2SAT 95
[2017-12-21 21:54] LABS: PROTHROMBIN TIME - PATIENT 9.9 SEC (9.8-11.6)
[2017-12-21 22:43] LABS: BACTERIA, URINE MOD /hpf; BILIRUBIN, URINE NEG (NEG); BLOOD, URINE NEG (NEG); GLUCOSE,URINE NEG (NEG); KETONE, URINE NEG (NEG); MUCUS URINE FEW /lpf (OCC); NITRITE,URINE POS (NEG); PH, URINE 5.5 (5.0-8.5); SQUAMOUS EPITHELIAL CELL URINE 1 /hpf (0-5); URINE COLOR YELLOW (YELLW/STRAW); URINE LEUKOCYTE ESTERASE TRACE (NEG); WHITE BLOOD CELL CLUMPS RARE
[2017-12-21 22:53] LABS: ALBUMIN 3.1 GM/DL (3.4-5.0); ALT (GPT) 22 U/L (10-53); AST (GOT) 17 U/L (15-37); BLOOD UREA NITROGEN 20 MG/DL (7-18); CALCIUM 8.3 MG/DL (8.5-10.1); CHLORIDE 110 MEQ/L (98-107); CREATININE 0.95 MG/DL (0.50-1.00); GLOMERULAR FILTRATION RATE 62 ML/MIN (>89); GLUCOSE,RANDOM 93 MG/DL (74-106); MAGNESIUM 1.9 MG/DL (1.5-2.5); SODIUM (NA) 144 MEQ/L (136-145)
[2017-12-21 22:57] LABS: ALKALINE PHOSPHATASE 77 U/L (45-117); TOTAL BILIRUBIN ADULT 0.3 MG/DL (0.2-1.0); TROPONIN I LESS THAN 0.02 NG/ML (0.02-0.05)
[2017-12-21] MEDS ORDERED: cefTRIAXone INJ 1,000 MG in SODIUM CHLORIDE 0.9% INJ 100 ML IV ONE (23:00)
[2017-12-22] MEDS ORDERED: ONDANSETRON HCL 4 MG/2 ML VIAL IV PUSH ONE (00:15)
[2017-12-22] MEDS ORDERED: MORPHINE SULFATE 4 MG/ML INJ IV PUSH ONE (00:15)
[2017-12-22] MEDS ORDERED: MACR100C2 PO (00:18)
--- NOTE | 2017-12-22 00:18 | PD ---
Physical Exam Narrative I, Dr. Dyer, have reviewed the advance practice practitioner's documentation and am in agreement, met with the patient face to face, made the diagnosis, and the medical decision making was done by me. *My assessment and Findings: Anxiety vs. rectal bleed vs. UTI vs. hematuria 52yo F with multiple complaints. Pt is mainly here today because she saw blood in the toilet. Unsure where the blood is coming from but thinks she is having rectal bleeding. Hemaprompt by my nurse practitioner is negative. Hemodynamically stable. Pt is on home O2 and is saturating at 95% on 2L NC. Pt also with left chest pain but really more left rib pain and denies any sob or trauma. Labs reviewed, no leukocytosis. H/H normal at 14.5/43.2. BUN mildly elevated at 20. Troponin negative. CXR negative. Pt is requesting IV pain medication initially requesting dilaudid. However, after I said I will not give dilaudid, she is ok with morphine and zofran. Pt given pain medication with improvement of pain. Pt instructed to follow up with her GI physician for possible blood in stool. Do not think chest pain is cardiac, will have pt follow up as outpatient. UA showed positive nitrite and pt given ceftriaxone. Pt able to tolerate PO, will give antibiotics. Data Data Last Documented VS Vital Signs Date Time Temp Pulse Resp B/P (MAP) Pulse Ox O2 Delivery O2 Flow Rate FiO2 12/21/17 21:42 95 Nasal Cannula 2.00 12/21/17 19:59 98.7 98 21 137/97 (110) Orders Orders Complete Blood Count With Diff (12/21/17 20:34) Comprehensive Metabolic Panel (12/21/17 20:34) Prothrombin Time / Inr (Pt) (12/21/17 20:34) Act Partial Throm Time (Ptt) (12/21/17 20:34) Urinalysis - C+S If Indicated (12/21/17 20:34) Ecg Monitoring (12/21/17 20:34) Iv Access Insert/Monitor (12/21/17 20:34) Oximetry (12/21/17 20:34) Pantoprazole Inj (Protonix Inj) (12/21/17 20:45) Sodium Chlor 0.9% 1000 Ml Inj (Ns 1000 M (12/21/17 20:34) Sodium Chloride 0.9% Flush (Ns Flush) (12/21/17 20:45) Creatine Kinase (Cpk) (12/21/17 20:34) Troponin I (12/21/17 20:34) Magnesium (Mg) (12/21/17 20:34) Electrocardiogram (12/21/17 ) Chest, Single Ap (12/21/17 ) Lipase (12/21/17 20:34) Urine Culture (12/21/17 22:22) Ceftriaxone Inj (Rocephin Inj) (12/21/17 23:00) Morphine Inj (Morphine Inj) (12/22/17 00:15) Ondansetron Inj (Zofran Inj) (12/22/17 00:15) Labs Laboratory Tests Test 12/21/17 20:58 12/21/17 22:15 12/21/17 22:22 White Blood Count 9.3 TH/MM3 Red Blood Count 4.59 MIL/MM3 Hemoglobin 14.5 GM/DL Hematocrit 43.2 % Mean Corpuscular Volume 94.1 FL Mean Corpuscular Hemoglobin 31.6 PG Mean Corpuscular Hemoglobin Concent 33.6 % Red Cell Distribution Width 13.8 % Platelet Count 324 TH/MM3 Mean Platelet Volume 10.0 FL Neutrophils (%) (Auto) 51.6 % Lymphocytes (%) (Auto) 35.7 % Monocytes (%) (Auto) 8.8 % Eosinophils (%) (Auto) 2.5 % Basophils (%) (Auto) 1.4 % Neutrophils # (Auto) 4.8 TH/MM3 Lymphocytes # (Auto) 3.3 TH/MM3 Monocytes # (Auto) 0.8 TH/MM3 Eosinophils # (Auto) 0.2 TH/MM3 Basophils # (Auto) 0.1 TH/MM3 CBC Comment DIFF FINAL Differential Comment Prothrombin Time 9.9 SEC Prothromb Time International Ratio 1.0 RATIO Activated Partial Thromboplast Time 23.8 SEC Blood Urea Nitrogen 20 MG/DL Creatinine 0.95 MG/DL Random Glucose 93 MG/DL Total Protein 6.0 GM/DL Albumin 3.1 GM/DL Calcium Level 8.3 MG/DL Magnesium Level 1.9 MG/DL Alkaline Phosphatase 77 U/L Aspartate Amino Transf (AST/SGOT) 17 U/L Alanine Aminotransferase (ALT/SGPT) 22 U/L Total Bilirubin 0.3 MG/DL Sodium Level 144 MEQ/L Potassium Level 3.9 MEQ/L Chloride Level 110 MEQ/L Carbon Dioxide Level 26.0 MEQ/L Anion Gap 8 MEQ/L Estimat Glomerular Filtration Rate 62 ML/MIN Total Creatine Kinase 81 U/L Troponin I LESS THAN 0.02 NG/ML Lipase 107 U/L Urine Color YELLOW Urine Turbidity HAZY Urine pH 5.5 Urine Specific [place] 1.022 Urine Protein NEG mg/dL Urine Glucose (UA) NEG mg/dL Urine Ketones NEG mg/dL Urine Occult Blood NEG Urine Nitrite POS Urine Bilirubin NEG Urine Urobilinogen LESS THAN 2.0 MG/DL Urine Leukocyte Esterase TRACE Urine RBC 1 /hpf Urine WBC 19 /hpf Urine WBC Clumps RARE Urine Squamous Epithelial Cells 1 /hpf Urine Bacteria MOD /hpf Urine Mucus FEW /lpf Microscopic Urinalysis Comment CULTURE INDICATED MDM Supervised Visit with [facility]: Yes Interpretation(s) EKG: NSR 79bpm. Normal axis. No ST segment elevation or depression. Diagnosis Primary Impression: UTI (urinary tract infection) Qualified Codes: N39.0 - Urinary tract infection, site not specified Patient Instructions: General Instructions Departure Forms: Tests/Procedures Additional Instruction: Please follow up with your GI physician for possible intermittent blood from stool. Please follow up with your primary care physician in 1-2 days. Return to the ED if symptoms worsen. Med/Other Pt SpecificInfo: Prescription(s) given Scripts Nitrofurantoin Monohydrate Macrocrystals (Macrobid) 100 Mg Cap 100 MG PO BID for Infection for 5 Days, #10 CAP 0 Refills Prov: GomezZenaida 12/22/17 Disposition: 01 DISCHARGE HOME Condition: Stable Zenaida Dyer DO Dec 22, 2017 00:18
--- NOTE | 2017-12-22 08:55 | EKG ---
Date Performed: 12/21/2017 Time Performed: 21:39:44 PTAGE: 52 years EKG: Sinus rhythm NORMAL ECG PREVIOUS TRACING : 10/15/2017 10.51 DOCTOR: Bartolo Monreal Interpretating Date/Time 12/22/2017 08:54:30
== END 2017-12-22 00:50 | disposition home or self-care (01) ==
LOC: NEPC 19:46
DX: N39.0 Urinary tract infection, site not specified (principal); R07.9 Chest pain, unspecified; J44.9 Chronic obstructive pulmonary disease, unspecified; Z79.899 Other long term (current) drug therapy; Z99.81 Dependence on supplemental oxygen
CPT/HCPCS: 71045; 80053; 81001; 82550; 83690; 83735; 84484; 85025; 85610; 85730; 87077; 87086; 87186; 93005; 96361; 96365; 96375; 99285; C9113; J0696; J2270; J2405; J7030

== ENCOUNTER → 2018-01-18 | Outpatient (CLI) | payer OTHER ==
[~2018-01-18] MED LIST changes: -AUGM875T3 PO; +MACR100C2 PO
--- NOTE | 2018-01-18 13:50 | RADRPT ---
EXAM DATE: 01/18/2018 1:42 PM EDT AGE/SEX: 52 years / Female INDICATIONS: Hemoptysis. Hypoxemia. CLINICAL DATA: This is the patient's initial encounter. Patient reports that signs and symptoms have been present for 2 weeks and indicates a pain score of 0/10. MEDICAL/SURGICAL HISTORY: Carcinoma, gastric. Chronic obstructive pulmonary disease. Cerebrovascu lar disease. Hypertension. Myocardial infarction. Ulcer. Congestive heart failure. Craniotomy. Ce sarean section. Partial gastrectomy. RADIATION DOSE: 5.45 CTDI (mGy) COMPARISON: No prior [facility] exams available for comparison. TECHNIQUE: Multiple contiguous axial images were obtained through the chest without contrast. Image s were obtained in suspended respiration using multiple row detector helical technique. Using automa kana exposure control and adjustment of the mA and/or kV according to patient size, radiation dose was kept as low as reasonably achievable to obtain optimal diagnostic quality images. FINDINGS: Lungs: The lungs are symmetrically hyperaerated. No infiltrates or nodular densities are s een. Small calcified granuloma is identified in the left lower lobe. Mild central airway disease is n oted. Mediastinum: There is good visualization of the great vessels of the middle mediastinum. No evidenc e of mediastinal or hilar adenopathy/mass. Mediastinal and left hilar calcifications are noted. Pleurae: No evidence of focal thickening or pleural effusion. Axillae: Unremarkable. Bony Structures: Unremarkable. Miscellaneous: The examination was extended to include the upper abdomen, and both adrenal glands ar e normal in size and configuration. CONCLUSION: 1. COPD. 2. No evidence of acute airspace disease or suspicious pulmonary nodules 3. Old granulomatous disease Electronically signed by: Han Obrien MD 01/18/2018 1:49 PM EDT
== END ==
LOC: HRAD 11:43
PROVIDERS: ATTEND Internal Medicine Pulmonary Disease
DX: R04.2 Hemoptysis (principal); R09.02 Hypoxemia
CPT/HCPCS: 71250